=== PATIENT | female | born 1960 | race African-American/Black ===

== ENCOUNTER 2016-06-26 18:57 | Emergency (ER) | payer MEDICARE, MEDICAID ==
--- NOTE | 2016-06-26 19:49 | UC ---
Cardiac HPI - HPI Summary HPI Summary: The patient comes in today for: 1. Chest pain: Onset: 6 hours ago. Palliative/provocative: Nothing makes it better or worse. Walking does not affect it. Quality: Pressure. Region/radiation: Left chest with her left arm/fingers feels numb. Severity: 6/10 Time: Constant. Associated symptoms: Previous heart disease: She was "worked up a few years ago" and the stress test (exercise one and machine). It was OK. Fever: Shortness of breath. Palpitations. CAD risk factors: age: (+), HTN: (+), DM: (-), Previous heart disease: (-), Fm Hx: (+) (53 year old brother from [place]), smoking: (+), Cholesterol (doing well with Rx) * - History of Current Complaint Chief Complaint: UCChestPain Stated Complaint: CHEST PAIN Time Seen by Provider: 06/26/16 19:06 Hx Obtained From: Patient, Family/Junior Systems Administrator - Allergy/Home Medications Allergies/Adverse Reactions: Allergies Allergy/AdvReac Type Severity Reaction Status Date / Time Acetaminophen [From Tylenol] AdvReac Severe Tachycardia Verified 06/26/16 19:06 enviromental Allergy Eyes Uncoded 06/26/16 19:06 Itchy/Swollen/Red/Watery PMH/Surg Hx/FS Hx/Imm Hx Previously Healthy: No Endocrine History Of: Reports: Thyroid Disease, Hypothyroidism, Dyslipidemia Cardiovascular History Of: Reports: Hypertension Denies: Cardiac Disorders, Pacemaker/ICD, Myocardial Infarction, Congestive Heart Failure, Atrial Fibrillation, Deep Vein Thrombosis, Bleeding Disorders Respiratory History Of: Reports: Asthma Denies: COPD, Bronchitis, Pneumonia, Pulmonary Embolism GI/ History Of: Reports: Gastroesophageal Reflux Denies: Ulcer, Gastrointestinal Bleed, Gall Bladder Disease, Kidney Stones, Diverticulitis, Renal Disease, Urosepsis Neurological History Of: Denies: TIA, CVA, Dementia, Seizures, Migraine Psychological History Of: Reports: Depression Denies: Anxiety, Bipolar Disorder, Schizophrenia, Post Traumatic Stress Disorder Cancer History Of: Denies: Lung Cancer, Colorectal Cancer, Breast Cancer, Prostate Cancer, Cervical Cancer Other History Of: Negative For: HIV, Hepatitis B, Hepatitis C, Anticoagulant Therapy - Surgical History Surgical History: Yes Surgery Procedure, Year, and Place: 08/25 [facility] – [place]- D&C, 02/28 [facility] – [place]- hysterectomy. c- section - Family History Known Family History: Positive: Cardiac Disease, Hypertension, Diabetes - Social History Occupation: Employed Full-time Alcohol Use: Rare Substance Use Type: None Smoking Status (MU): Heavy Every Day Tobacco Smoker Type: Cigarettes Amount Used/How Often: 10 cig a day Length of Time of Smoking/Using Tobacco: 34 yrs Have You Smoked in the Last Year: Yes Household Exposure Type: Cigarettes - Immunization History Most Recent Influenza Vaccination: Never Most Recent Tetanus Shot: Within past 10 years Most Recent Pneumonia Vaccination: Never Review of Systems Constitutional: Negative Skin: Negative Eyes: Negative ENT: Negative Respiratory: Negative Cardiovascular: Chest Pain Gastrointestinal: Negative Genitourinary: Negative Motor: Negative All Other Systems Reviewed And Are Negative: Yes Physical Exam Triage Information Reviewed: Yes Appearance: No Pain Distress, Well-Nourished Vital Signs: Initial Vital Signs Temp 98.5 F 06/26/16 19:02 Pulse 68 06/26/16 19:02 Resp 16 06/26/16 19:02 BP 135/78 06/26/16 19:02 Pulse Ox 96 06/26/16 19:02 Eyes: Positive: Conjunctiva Clear. Negative: Discharge ENT: Positive: Hearing grossly normal. Negative: Pharyngeal erythema, Nasal congestion, Nasal drainage, TM bulging, TM dull, TM red, Tonsillar swelling, Tonsillar exudate Dental: Negative: Gross Decay/Caries @, Dental Fracture @ Neck: Positive: Supple, Nontender, No Lymphadenopathy. Negative: Nuchal Rigidity Respiratory: Positive: Chest non-tender, Lungs clear, No respiratory distress, No accessory muscle use. Negative: Crackles, Wheezing Cardiovascular: Positive: RRR, No Murmur Abdomen Description: Positive: Nontender, No Organomegaly, Soft. Negative: Distended, Guarding Musculoskeletal: Positive: Strength Intact, ROM Intact Neurological: Positive: Alert, Muscle Tone Normal Psychological: Positive: Age Appropriate Behavior, Consolable Skin: Negative: rashes, breakdown Diagnostics - Laboratory Diagnostic Studies Completed/Ordered: EKG: Rate: 65. Rhythm: Sinus. Ectopy: ( -). Acute changes: (-) - Clinical Impression Provider Diagnoses: Dr. Gottlieb - Physician Notifications Time Discussed With Above Provider: 20:03 Discharge - Discharge Plan Condition: Stable Disposition: [facility] Patient Education Materials: Chest Pain (ED) Additional Instructions: Please follow up with your primary care provider as soon as recommended by the hospital after you get out. Your family may follow you to the ER.
[2016-06-26] MEDS ORDERED: Aspirin Low Dose CHEW TAB* 81 MG PO ONE ×2 (20:03→20:04)
[2016-06-26 20:21] VITALS: BP 151/83
== END 2016-06-26 20:36 | disposition short-term general hospital (02) ==
LOC: UCEAST 18:57
DX: R07.9 Chest pain, unspecified (principal); E03.9 Hypothyroidism, unspecified; E78.5 Hyperlipidemia, unspecified; F17.210 Nicotine dependence, cigarettes, uncomplicated; J45.909 Unspecified asthma, uncomplicated
CPT/HCPCS: 93005; A9270-GY

== ENCOUNTER 2016-06-26 21:02 | Observation (INO) | payer MEDICARE, MEDICAID ==
[2016-06-26 21:45] LABS: Hematocrit 42 % (35-47); Mean Corpuscular HGB Conc 34 g/dl (31-36); Mean Corpuscular Hemoglobin 31 pg (27-31); Mean Corpuscular Volume 93 fL (80-97); Mean Platelet Volume 9 um3 (7.4-10.4); Red Blood Count 4.47 10^6/ul (4.0-5.4); Red Cell Distribution Width 14 % (10.5-15)
--- NOTE | 2016-06-26 21:55 | RAD ---
INDICATION: Chest pain COMPARISON: Most recent comparison chest x-ray July 16, 2014 TECHNIQUE: PA and lateral views of the chest were obtained. FINDINGS: The heart and mediastinum are normal in size and contour. The lungs are grossly clear. There is no evidence of large pleural effusion. Visualized bones are normal for the patient's age. There is no radiographic evidence of free air beneath the diaphragm IMPRESSION: No radiographic evidence of acute cardiopulmonary disease.
[2016-06-26 21:59] LABS: Albumin 4.2 g/dL (3.2-5.2); BUN/Creatinine Ratio 22.6 (8-20); Calcium 10.5 mg/dL (8.6-10.3); EGFR African American 127.6 (>60); EGFR Non-African American 99.2 (>60); Globulin 3.1 g/dL (2-4); Potassium 3.2 mmol/L (3.5-5.0); Total Bilirubin 0.3 mg/dL (0.2-1.0); Total Protein 7.3 g/dL (6.4-8.9)
[2016-06-26 22:02] LABS: Troponin I 0.06 ng/mL (<0.04)
--- NOTE | 2016-06-26 22:02 | ED ---
Jon Grossman Erika, scribed for Dennys Solano MD on 06/26/16 at 2122 . HPI Chest Pain - HPI Summary HPI Summary: Patient is a 56-year-old female sent by [facility] to the ED with a CC of constant chest pain starting at 13:00 today. Patient reports she was shopping when the pain began. Pain is not aggravated by breathing, and was constantly a 6 /10 until NTG treatment from EMS, which has reduced pain to a 4/10. Pt was also treated with 81 mg aspirin at [facility]. Patient also reports left arm numbness. She states she has had similar symptoms a few years ago. - History of Current Complaint Time Seen by Provider: 06/26/16 21:06 Hx Obtained From: Patient Onset/Duration: Started Hours Ago, Atraumatic, Still Present Timing: Constant Initial Severity: Moderate Current Severity: Moderate Pain Intensity: 4 - was 6/10 before EMS Tx Pain Scale Used: 0-10 Numeric Chest Pain Location: Left Anterior Chest Pain Radiates: Yes Chest Pain Radiates To:: Arm - left arm numbness Aggravating Factor(s): Nothing Alleviating Factor(s): NTG 123, EMS Tx - Allergy/Home Medications Allergies/Adverse Reactions: Allergies Allergy/AdvReac Type Severity Reaction Status Date / Time Acetaminophen [From Tylenol] AdvReac Severe Tachycardia Verified 06/26/16 19:06 enviromental Allergy Eyes Uncoded 06/26/16 19:06 Itchy/Swollen/Red/Watery PMH/Surg Hx/FS Hx/Imm Hx Endocrine/Hematology History: Reports: Hx Thyroid Disease Denies: Hx Anticoagulant Therapy, Hx Diabetes Cardiovascular History: Reports: Hx Angina, Hx Hypercholesterolemia, Hx Hypertension Denies: Hx Congestive Heart Failure, Hx Deep Vein Thrombosis, Hx Myocardial Infarction, Hx Pacemaker/ICD Respiratory History: Reports: Hx Asthma, Hx Sleep Apnea Denies: Hx Chronic Obstructive Pulmonary Disease (COPD), Hx Lung Cancer, Hx Pneumonia, Hx Pulmonary Embolism GI History: Reports: Hx Gastroesophageal Reflux Disease Denies: Hx Gall Bladder Disease, Hx Gastrointestinal Bleed, Hx Ulcer, Hx Urosepsis History: Denies: Hx Kidney Stones, Hx Renal Disease Musculoskeletal History: Reports: Hx Arthritis - knees Neurological History: Denies: Hx Dementia, Hx Migraine, Hx Seizures, Hx Transient Ischemic Attacks (TIA) Psychiatric History: Reports: Hx Depression Denies: Hx Anxiety, Hx Schizophrenia, Hx Bipolar Disorder - Cancer History Hx Chemotherapy: No Hx Radiation Therapy: No - Surgical History Surgery Procedure, Year, and Place: 08/25 [facility] [place], 02/28 [facility] [place]. c- section - Family History Known Family History: Positive: Cardiac Disease, Hypertension, Diabetes - Social History Occupation: Disabled Alcohol Use: Rare Hx Substance Use: No Substance Use Type: Reports: None Hx Tobacco Use: Yes Smoking Status (MU): Heavy Every Day Tobacco Smoker Type: Cigarettes Amount Used/How Often: 10 cig a day Length of Time of Smoking/Using Tobacco: 34 yrs Have You Smoked in the Last Year: Yes Review of Systems Positive: Chest Pain Positive: Numbness - left arm All Other Systems Reviewed And Are Negative: Yes Physical Exam Triage Information Reviewed: Yes Vital Signs On Initial Exam: Temp Pulse Resp BP Pulse Ox 98.5 F 70 20 137/84 96 06/26/16 21:08 06/26/16 21:08 06/26/16 21:08 06/26/16 21:08 06/26/16 21:08 Vital Signs Reviewed: Yes Appearance: Positive: Well-Appearing, No Pain Distress Skin: Positive: Warm Head/Face: Positive: Normal Head/Face Inspection Eyes: Positive: JOANN ENT: Positive: Hearing grossly normal Neck: Positive: Supple Respiratory/Lung Sounds: Positive: Clear to Auscultation, Breath Sounds Present Cardiovascular: Positive: Normal. Negative: Murmur Abdomen Description: Positive: Nontender, No Organomegaly, Soft Bowel Sounds: Positive: Present Musculoskeletal: Positive: Normal, Strength/ROM Intact Neurological: Positive: Sensory/Motor Intact, Normal Gait Psychiatric: Positive: Normal Diagnostics - Vital Signs Vital Signs Temp Pulse Resp BP Pulse Ox 06/26/16 21:08 98.5 F 70 20 137/84 96 - Laboratory Lab Results: Lab Results 06/26/16 06/26/16 06/26/16 Range/Units 20:10 21:20 21:20 WBC 8.0 (3.5-10.8) 10^3/ul RBC 4.47 (4.0-5.4) 10^6/ul Hgb 14.0 (12.0-16.0) g/dl Hct 42 (35-47) % MCV 93 (80-97) fL MCH 31 (27-31) pg MCHC 34 (31-36) g/dl RDW 14 (10.5-15) % Plt Count 182 (150-450) 10^3/ul MPV 9 (7.4-10.4) um3 Neut % (Auto) 50.6 (38-83) % Lymph % (Auto) 38.8 (25-47) % Bertie % (Auto) 7.9 (1-9) % Eos % (Auto) 2.2 (0-6) % Baso % (Auto) 0.5 (0-2) % Absolute Neuts (auto) 4.1 (1.5-7.7) 10^3/ul Absolute Lymphs (auto) 3.1 (1.0-4.8) 10^3/ul Absolute Monos (auto) 0.6 (0-0.8) 10^3/ul Absolute Eos (auto) 0.2 (0-0.6) 10^3/ul Absolute Basos (auto) 0 (0-0.2) 10^3/ul Absolute Nucleated RBC 0 10^3/ul Nucleated RBC % 0 Sodium 139 (133-145) mmol/L Potassium 3.2 L (3.5-5.0) mmol/L Chloride 110 (101-111) mmol/L Carbon Dioxide 27 (22-32) mmol/L Anion Gap 2 (2-11) mmol/L BUN 14 (6-24) mg/dL Creatinine 0.62 (0.51-0.95) mg/dL Est GFR ( Amer) 127.6 (>60) Est GFR (Non-Af Amer) 99.2 (>60) BUN/Creatinine Ratio 22.6 H (8-20) Glucose 109 H (70-100) mg/dL Lactic Acid 1.0 (0.5-2.0) mmol/L Calcium 10.5 H (8.6-10.3) mg/dL Total Bilirubin 0.30 (0.2-1.0) mg/dL AST 15 (13-39) U/L ALT 15 (7-52) U/L Alkaline Phosphatase 129 H (34-104) U/L Troponin I Pending Total Protein 7.3 (6.4-8.9) g/dL Albumin 4.2 (3.2-5.2) g/dL Globulin 3.1 (2-4) g/dL Albumin/Globulin Ratio 1.4 (1-3) Result Diagrams: 06/26/16 20:10 06/26/16 21:20 Lab Statement: Any lab studies that have been ordered have been reviewed, and results considered in the medical decision making process. - Radiology CXR Radiology Interpretation Completed By: Radiologist - IMPRESSION: No radiographic evidence of acute cardiopulmonary disease. - EKG 21:34 Cardiac Rate: Bradycardia - 54 bpm EKG Rhythm: Sinus Bradycardia Re-Evaluation - Re-Evaluation First Eval Re-Evaluation Time: 00:00 - pain free, results d/w pt. d/w hospitalist Change: Improved Chest Pain Course/Dx - Course Assessment/Plan: A 56 y/o F presents to the ED with a CC of chest pain with left arm numbness. Pt was treated with aspirin at [facility], and NTG by EMS, which decreased the severity of the pain. Blood work reveals an initial troponin of 0.06. Will discuss patient care with Dr. Madison for admission. - Diagnoses Provider Diagnoses: NSTEMI (non-ST elevated myocardial infarction) - Provider Notifications Discussed Care Of Patient With: Dr. Madison (hospitalist) at 20:07 - agrees to admit Instructed by Provider To: Admit As Inpatient - Critical Care Time Critical Care Time: 30-74 min Discharge - Discharge Plan Condition: Stable Disposition: ADMITTED TO [facility] documentation as recorded by the Jon escobar Erika accurately reflects the service I personally performed and the decisions made by me, Dennys Solano MD.
[2016-06-26] MEDS ORDERED: Nitroglycerin 2% OINT* 1 GM PAK TOPICAL ONE (22:08)
[2016-06-26] MEDS ORDERED: Potassium Chlor TAB* 20 MEQ TAB.ER PO ONE (22:47)
[2016-06-26] MEDS ORDERED: Ondansetron INJ* 2 MG/ML VIAL IV PRN (23:17)
[2016-06-26] MEDS ORDERED: Al Hydrox/Mg Hydrox/Simet LIQ* 30 ML UDC PO PRN (23:17)
--- NOTE | 2016-06-27 01:47 | HP ---
HISTORY AND PHYSICAL: DATE OF ADMISSION: 06/26/16 TIME OF EVALUATION: 2300 hours. PRIMARY CARE PHYSICIAN: Jose Camacho MD CHIEF COMPLAINT: Chest pain and left arm numbness. HISTORY OF PRESENT ILLNESS: This is a 56-year-old female with past medical history of hypertension and obstructive sleep apnea who presents to the emergency room from [facility] after having left-sided chest pain with left arm numbness around 1 o'clock while she was shopping. She denied any associated shortness of breath and diaphoresis. No nausea. She went to [facility] who sent her to the emergency room via ambulance for further evaluation. She was given nitro and aspirin. Her chest pain resolved, but her arm numbness has persisted. She states she has had similar symptoms like this in the past, but has felt this has been stress related. She denies any increase in stress recently. She states she had a stress test a few years ago that was unremarkable. Of note in the system, her last stress test was in June 2014 that was negative. Otherwise, remaining review of systems is negative. The patient was seen in the emergency room, had labs and imaging and was referred to the Hospitalist Service to rule out acute coronary syndrome. PAST MEDICAL HISTORY: Hypertension; obstructive sleep apnea, on CPAP; hypothyroidism; asthma; GERD; and depression. MEDICATIONS: The patient did not bring her medication list with her. ALLERGIES: TYLENOL. FAMILY HISTORY: Her brother from an [place] at age 53. 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 She lives with her son Dequan, who is her health care proxy. She admits to smoking about 10 cigarettes per day for 35 years. Rare alcohol use. No illicit drug use. CODE STATUS: Full code. REVIEW OF SYSTEMS: As mentioned in the HPI. PHYSICAL EXAMINATION GENERAL: In no acute distress, resting comfortably with her family at the bedside. VITAL SIGNS: Temperature 98.5, pulse rate is 50, respiratory rate is 14, oxygen saturation 97% on room air, and blood pressure 145/73. HEENT: Oropharynx, mucous membranes are moist. No erythema or exudate. Pupils are equal, round, and reactive to light and anicteric. Head normocephalic. NECK: Supple. No lymphadenopathy. RESPIRATORY: Diminished breath. No wheezing, rhonchi, or rales. CARDIAC: Regular rate and rhythm. She does have a blowing systolic murmur and most prominent at the right sternal base. ABDOMEN: Soft, nontender, and nondistended. EXTREMITIES: No clubbing, cyanosis, or edema; +2 DP. NEUROLOGIC: Alert and oriented x3. No focal neurologic deficits. DIAGNOSTIC STUDIES/LAB DATA: White count 8, hemoglobin 14, hematocrit 42, and platelets 182. Sodium 139, potassium 3.2, chloride 110, bicarb 27, BUN 14, creatinine 0.62, glucose 109, and calcium 10.5. Troponin 0.06. Lactic acid is 1. RADIOGRAPHIC DATA: Chest x-ray shows no radiographic evidence of acute cardiopulmonary disease. EKG shows normal sinus rhythm with atypical ST flattening. ASSESSMENT AND PLAN: This is a 56-year-old female with a past medical history of hypertension, obstructive sleep apnea, and family history of cardiac disease who presents to the emergency room with chest pain and left arm numbness. 1. Chest pain and left arm numbness: Assessment: The patient with atypical chest pain. Her chest pain has now resolved after nitro. Her numbness still persists, which could also be concerning for a neurologic event including transient ischemic attack or cerebrovascular accident. It has been a year since her last stress as well. She has significant family history. Plan: We will admit her to telemetry. Her troponin is noted as indeterminate depending on what the repeat shows. We will determine if this is ruling in for an NSTEMI versus chest pain rule out. We will get a head CT as well. If her numbness persists, may work it up further for concern for a cerebrovascular accident. Continue her on a baby aspirin 81 mg and we will need her med record in the morning as well. We will check a lipid panel as well and put in for a stress test. 2. Chronic medical problems: I am not aware of what medication she takes. She does not have her list with her. I recommend contacting pharmacy in the morning and starting them accordingly. 3. FEN: We will place her n.p.o. after midnight. 4. DVT prophylaxis: The patient scores high risk. Place her on heparin subcu t.i.d. 5. Code status: Full code. PATIENT TIME: Greater than 45 minutes was spent doing history and physical, greater than half time was spent in direct patient contact. CC: Jose Camacho MD* [id number]/[facility] #: [id number] JERICHO
--- NOTE | 2016-06-27 07:19 | RAD ---
INDICATION: Left arm numbness COMPARISON: None. TECHNIQUE: Contiguous axial sections of the brain were obtained from the skull base to the vertex without contrast. FINDINGS: The ventricles, cisterns and sulci are within normal limits. The sanchez-white matter differentiation is adequately maintained and there is no sulcal effacement. No significant focal abnormality or mass effect is present. There is no evidence for intracranial hemorrhage. No significant focal osseous abnormality is present. The visualized portion of the paranasal sinuses and mastoid air cells appear clear. IMPRESSION: Normal CT of the brain.
[2016-06-27] MEDS: Heparin VIAL(*) 5000 UNITS/ML VIAL (FIVE THOUSAND) SUBCUT SCH ×2 (07:46→14:24)
[2016-06-27 08:32] LABS: HDL Cholesterol 30.8 mg/dL
[2016-06-27 08:36] LABS: Troponin I 0.05 ng/mL (<0.04)
[2016-06-27] MEDS ORDERED: Aspirin EC Low Dose* 81 MG TAB.EC PO SCH (09:00)
--- NOTE | 2016-06-27 11:15 | PN ---
Subjective Date of Service: 06/27/16 Interval History: Patient seen and examined at bedside. Pt reports being chest pain free and the numbness and tingling to her arms has resolved. Denies fever, chills, shortness of breath, chest discomfort, N/V/D. Pt is complaining of a headache. Tele: Sinus rhythm, rate 60-70's. Family History: Unchanged from Admission Social History: Unchanged from Admission Past Medical History: Unchanged from Admission Objective Active Medications: Al Hydrox/Mg Hydrox/Simethicone (Maalox Plus*) 30 ml PO Q6H PRN Reason: INDIGESTION Aspirin (Aspirin Ec Low Dose*) 81 mg PO DAILY VIJI Heparin Sodium (Porcine) (Heparin Vial(*)) 5,000 units SUBCUT Q8HR VIJI Ondansetron HCl (Zofran Inj*) 4 mg IV Q4H PRN Reason: NAUSEA/VOMITING Vital Signs 06/26/16 06/27/16 06/27/16 23:24 00:42 00:45 Pulse Rate 54 51 Respiratory 16 16 Rate Blood Pressure 130/76 130/76 (mmHg) O2 Sat by Pulse 97 96 Oximetry 06/27/16 06/27/16 06/27/16 00:46 01:00 01:15 Pulse Rate 53 Respiratory 18 19 21 Rate Blood Pressure (mmHg) O2 Sat by Pulse 99 Oximetry 06/27/16 06/27/16 06/27/16 04:22 04:30 04:45 Pulse Rate 60 Respiratory 14 20 24 Rate Blood Pressure 133/72 (mmHg) O2 Sat by Pulse 98 Oximetry 06/27/16 06/27/16 06/27/16 06:24 07:19 07:20 Pulse Rate 59 Respiratory 20 14 Rate Blood Pressure 125/73 (mmHg) O2 Sat by Pulse 97 Oximetry 06/27/16 07:30 Pulse Rate 55 Respiratory 16 Rate Blood Pressure (mmHg) O2 Sat by Pulse 97 Oximetry Oxygen Devices in Use Now: None Appearance: NAD, laying in bed. Eyes: No Scleral Icterus, PERRLA Ears/Nose/Mouth/Throat: NL Teeth, Lips, Gums, Mucous Membranes Moist Neck: NL Appearance and Movements; NL JVP, Trachea Midline Respiratory: Symmetrical Chest Expansion and Respiratory Effort, Clear to Auscultation Cardiovascular: NL Sounds; No Murmurs; No JVD, RRR Abdominal: NL Sounds; No Tenderness; No Distention Extremities: No Edema Skin: No Rash or Ulcers Neurological: Alert and Oriented x 3, NL Muscle Strength and Tone Lines/Tubes/Other Access: Clean, Dry and Intact Peripheral IV - site benign. Nutrition: Taking PO's Result Diagrams: 06/26/16 20:10 06/27/16 07:40 Additional Lab and Data: Assess/Plan/Problems-Billing Assessment: Ms. Bedolla is a 56 yo female with PMH significant for HTN, BERNY, asthma, GERD who presented to the emergency room with chest pain and left arm numbness. She was admitted as an OBC to rule-out ACS. - Patient Problems (1) Chest pain Code(s): R07.9 - CHEST PAIN, UNSPECIFIED SNOMED Code(s): 26487814 Comment: Chest pain free at this time. Troponins 0.06, 0.05, and 0.05. Pending stress test. (2) Hypokalemia Code(s): E87.6 - HYPOKALEMIA SNOMED Code(s): 73602726 Comment: Improvement after replacement last evening, will give more KCL today. (3) BERNY (obstructive sleep apnea) Code(s): G47.33 - OBSTRUCTIVE SLEEP APNEA (ADULT) (PEDIATRIC) SNOMED Code(s): 09158148 Comment: Continue CPAP. (4) DVT prophylaxis Code(s): SZQ8886 - SNOMED Code(s): 207555068 Comment: Continue SQ heparin (5) Full code status Code(s): Z78.9 - OTHER SPECIFIED HEALTH STATUS SNOMED Code(s): 413304907 Status and Disposition: OBV. Discharge to home when medically stable.
[2016-06-27] MEDS ORDERED: Regadenoson* 0.4 MG/5 ML SYRINGE ONE (13:08)
[2016-06-27] MEDS ORDERED: Aminophylline IV* 25 MG/ML 10 ML VIAL ONE (13:08)
[2016-06-27] MEDS ORDERED: Ondansetron INJ* 2 MG/ML VIAL ONE (13:30)
--- NOTE | 2016-06-27 14:32 | RAD ---
Edited for charges. INDICATION: Chest pain. COMPARISON: Comparison is made with a prior myocardial perfusion stress study from July 17, 2014. Technique: A single day myocardial perfusion stress study was performed. Initially the resting study was performed. The patient was given an intravenous injection of 10.2 mCi of technetium 99m tetrofosmin and and the heart was imaged in multiple projections. The patient returned later in the day and under the direction of Dr. Lopez, the patient was given intervenous injection of Lexiscan. Subsequently the patient was given intravenous injection of 25.9 mCi of technetium 99m tetrofosmin and the heart was imaged in multiple projections. Images were reconstructed in the axial, sagittal and coronal planes and in a 3- D format. FINDINGS: There appears to be normal wall motion and myocardial thickening. The left ventricular ejection fraction was calculated to be 58%. Review of the images demonstrates mild decreased activity in the inferolateral wall on the post pharmacologic stress and resting images which resolves on the attenuation corrected images and therefore most consistent with attenuation artifact. There appears to be apical thinning. No other focal abnormalities are seen. IMPRESSION: NO EVIDENCE FOR INFARCT OR ISCHEMIA. ASSESSMENT: Low risk. Based on imaging criteria from ACC/AHA 2002 Guideline Update for the Management of Patients With Chronic Stable Angina Table 23. Noninvasive Risk Stratification. MTDD
[2016-06-27 14:46] LABS: BUN/Creatinine Ratio 22.4 (8-20); Calcium 9.8 mg/dL (8.6-10.3); EGFR African American 137.8 (>60); EGFR Non-African American 107.2 (>60); Potassium 3.4 mmol/L (3.5-5.0)
[2016-06-27 17:09] VITALS: BP 138/73
[2016-06-27] MEDS ORDERED: Potassium Chlor TAB* 20 MEQ TAB.ER PO ONE (18:02)
--- NOTE | 2016-06-28 18:18 | DS ---
DISCHARGE SUMMARY: DATE OF ADMISSION: 06/26/16 DATE OF DISCHARGE: 06/27/16 ATTENDING PHYSICIAN: Dr. Camilo Aponte* (dictated by Flores Carson NP). PRIMARY CARE PROVIDER: Dr. Jose Camacho. PRIMARY DIAGNOSIS: Atypical chest pain. SECONDARY DIAGNOSES: 1. Hypertension. 2. Hypothyroidism. 3. Gastroesophageal reflux disease. 4. Depression. 5. Asthma. 6. Obstructive sleep apnea. STUDIES WHILE IN THE HOSPITAL: 1. Chest x-ray on 06/26/16. Radiologist's impression: No radiographic evidence for acute cardiopulmonary disease. 2. Brain CT on 06/26/16. Radiologist's impression: Normal CT of the brain. 3. Cardiac stress test on 06/27/16. Replenishment Specialist's conclusion: Resting EKG, sinus bradycardia, 53, nonspecific ST changes inferiorly, poor R-wave progression in V1 to V4 with administration of regadenoson. There were no definitive EKG changes of ischemia. No significant hemodynamic changes were noted. Replenishment Specialist's conclusion: No evidence for regadenoson-induced myocardial ischemia by EKG criteria. Radiologist's conclusion: Low-risk study. No evidence for infarct or ischemia. EKG from 06/26/16, normal sinus rhythm with atypical ST flattening. EKG from 06/27/16 shows a sinus rhythm with slight ST depression in leads V3. The patient has T-wave inversions in leads V1, V2, V3 and these are consistent with previous EKGs. DISCHARGE MEDICATIONS: Continue home medications: 1. Atenolol 50 mg oral daily. 2. Omeprazole 40 mg oral daily. 3. Nifedipine 60 mg oral daily. 4. Celexa 20 mg oral daily. 5. Potassium chloride 10 mEq oral daily. 6. Levothyroxine 50 mcg oral daily. 7. Indapamide 2.5 mg oral daily. 8. Pravastatin 20 mg oral daily at bedtime. HISTORY OF PRESENT ILLNESS/HOSPITAL COURSE: Ms. Bedolla is a 56-year-old female with past medical history significant for hypertension and obstructive sleep apnea, who presented to the emergency room from the [facility] after having left-sided chest discomfort and associated left arm numbness while she was shopping. The patient denied any associated shortness of breath or diaphoresis or nausea. She presented to [facility] for evaluation and she was sent to the emergency room for further evaluation. While in the emergency room, the patient was given nitroglycerin and aspirin. The patient's chest pain resolved but she continued to have persistent arm numbness. The patient had a brain CT showing normal CT of the brain. The patient reports having similar symptoms in the past and has felt that her chest discomfort has been stress related. The patient denied any increase in stress recently and states that she had a stress test a few years ago that was unremarkable. The patient's last stress test was in June of 2014 and at that time was negative. The patient had labs significant for hypokalemia with a potassium of 3.2. The patient's initial troponin was 0.06. The hospitalists were asked to evaluate the patient for admission. While in the hospital, the patient had her troponins trended and repeat at 0.06. The patient underwent nuclear stress test that was read as a low risk without evidence for infarct or ischemia. The patient had a repeat EKG that was similar to the previous EKGs that she has had. The patient has been chest pain free. The patient's states that her numbness resolved in her arm. The patient had a lipid panel that was within normal limits. For the patient's other chronic medical problems, she was continued on her home medications. It was noted that the patient was found to have hypokalemia and received potassium replacement during her stay. Ms. Bedolla is stable for discharge to home today. Vital signs are as follows: Temperature 97.7, heart rate 54, respiratory rate 18, O2 sat 92% on room air, blood pressure 138/73. DISCHARGE PLAN: Ms. Bedolla will be discharged to home. Activity as tolerated. She has been on a heart healthy diet. She has been asked to follow up with her primary care doctor, Dr. Camacho, and she has been asked to call and make an appointment in the next week. As far as the patient's atypical chest pain, she ruled out for acute coronary syndrome. The patient reports this occurred while shopping and denies a correlation with stress as in previous episodes. The patient has been asked to have her basic metabolic panel checked prior to a followup appointment with Dr. Camacho to ensure that her hypokalemia has resolved. The patient has been asked to return to the emergency room for chest pain or shortness of breath. This is a summarized report of a complex medical history and hospital stay. For further details, please see the entire medical record. TIME SPENT: Time for this discharge was 50 minutes, 25 minutes was spent face- to- face with the patient discussing discharge plans and instructions. CONDITION ON DISCHARGE: Stable. Reviewed by SOUTH OVIEDO 07/06/16 1410 CC: Dr. Jose Camacho* [id number]/CPS #: [id number] MTDD
== END 2016-06-27 18:51 | disposition home or self-care (01) ==
LOC: ED 21:02 → EDHOLD 23:17 → MEDTELE 06-27 11:13
PROVIDERS: ADMIT Pediatrics; ATTEND Internal Medicine
DX: R07.9 Chest pain, unspecified (principal); R20.0 Anesthesia of skin; E87.6 Hypokalemia; R00.1 Bradycardia, unspecified; I10 Essential (primary) hypertension; E03.9 Hypothyroidism, unspecified; K21.9 Gastro-esophageal reflux disease without esophagitis; F32.9 Major depressive disorder, single episode, unspecified; J45.909 Unspecified asthma, uncomplicated; G47.33 Obstructive sleep apnea (adult) (pediatric); Z79.899 Other long term (current) drug therapy; Z88.6 Allergy status to analgesic agent; F17.210 Nicotine dependence, cigarettes, uncomplicated
CPT/HCPCS: 36415; 70450; 71020; 78452; 80048; 80053; 80061; 82553; 83605; 83735; 84484; 85025; 93005; 93017; 94660; 96372; 96374; 99285; 99406; A9270-GY; A9502; G0378; J0280; J1644; J2405; J2785

== ENCOUNTER 2017-03-23 20:48 | Emergency (ER) | payer MEDICARE, MEDICAID ==
[2017-03-23] MEDS ORDERED: Ipratropium 0.5MG/2.5ML NEB* 0.5 MG/2.5 ML NEB.SOLN INH ONE (20:57)
[2017-03-23] MEDS ORDERED: methylPREDNISolone 125 MG* 2 ML VIAL IM ONE (20:57)
[2017-03-23] MEDS ORDERED: Albuterol 2.5 MG/3 ML NEB.SOL* (0.083%) INH ONE (20:57)
[2017-03-23 23:07] VITALS: BP 119/70
--- NOTE | 2017-03-24 17:11 | UC ---
Manisha Grossman Rebecca, scribed for Melania Ramos DO on 03/23/17 at 2147 . Respiratory Complaint HPI - HPI Summary HPI Summary: Pt is a 57 y/o F who presents to [facility] c/o SOB and productive cough for the last 4 days, worsening 3 days ago and today. SOB is characterized as dyspnea at rest and the cough produces light yellow-green sputum with no blood. Pt was evaluated by an TELEHEALTH CASE MANAGER at her PCP's office 3 days ago where she was given a 3 day dose of Prednisone and Flovent which was completed yesterday, that did not improve sx. Sx aggravated and alleviated by nothing, unchanged by nebulizer treatments the last of which was tonight, about 3 hours [employer]. Additionally c/o GARCIA secondary to cough. Denies sore throat, ear pain, N/V, CP and abdominal pain. No changes in urinary habits. PMHx asthma. Has been using her albuterol inhaler at home, which has not been improving sx. SHx current smoker. - History of Current Complaint Chief Complaint: UCRespiratory Stated Complaint: TROUBLE BREATHING/URI Hx Obtained From: Patient Onset/Duration: Lasting Days - 4 days, Still Present, Worse Since - Today Severity Initially: Moderate Severity Currently: Severe Pain Intensity: 0 Pain Scale Used: 0-10 Numeric Character: Cough: Productive, Sputum Description: - YELLOW GREEN Aggravating Factors: Nothing Alleviating Factors: Nothing Associated Signs And Symptoms: Positive: Dyspnea, Wheezing, Nasal Congestion, Sinus Discomfort. Negative: Fever, Chills, Pleuritic Chest Pain, Hemoptysis, Dizziness, Edema Related History: Seasonal Allergies, Healthcare Acquired Pneumonia: Inpatient Status Within Last 30 Days - Allergies/Home Medications Allergies/Adverse Reactions: Allergies Allergy/AdvReac Type Severity Reaction Status Date / Time Acetaminophen [From Tylenol] AdvReac Severe Tachycardia Verified 03/23/17 21:11 enviromental Allergy Eyes Uncoded 03/23/17 21:11 Itchy/Swollen/Red/Watery Home Medications: Home Medications Albuterol HFA INHALER* [Ventolin HFA Inhaler*] 2 puff INH Q4H PRN 03/23/17 [ History Confirmed 03/23/17] Fluticasone HFA 110 mcg(NF) [Flovent HFA 110 mcg(NF)] 1 puff INH DAILY 03/23/17 [History Confirmed 03/23/17] guaiFENesin/CODIEN 100MG-10MG* [Robitussin AC 100Mg-10Mg*] 03/23/17 [History] PMH/Surg Hx/FS Hx/Imm Hx Endocrine History: Thyroid Disease Cardiovascular History: Hypertension Respiratory History: Asthma, Other Other Respiratory History: Seasonal allergies Psychological History: Depression Other History Of: Negative For: HIV, Hepatitis B, Hepatitis C, Anticoagulant Therapy - Surgical History Surgical History: Yes Surgery Procedure, Year, and Place: 08/25 [facility] [place]- D&C, 02/28 [facility] [place]- hysterectomy. c- section - Family History Known Family History: Positive: Cardiac Disease, Hypertension, Diabetes - Social History Occupation: Employed Full-time Alcohol Use: Occasionally Substance Use Type: None Smoking Status (MU): Light Every Day Tobacco Smoker Type: Cigarettes Amount Used/How Often: 10 cig a day Length of Time of Smoking/Using Tobacco: 34 yrs Have You Smoked in the Last Year: Yes Household Exposure Type: Cigarettes - Immunization History Most Recent Influenza Vaccination: Never Most Recent Tetanus Shot: Within past 10 years Most Recent Pneumonia Vaccination: Never Review of Systems Constitutional: Negative Skin: Negative Eyes: Negative ENT: Negative Respiratory: Shortness Of Breath, Cough Cardiovascular: Negative Gastrointestinal: Negative Genitourinary: Negative Motor: Negative Neurovascular: Negative Musculoskeletal: Negative Neurological: Headache - secondary to cough Psychological: Negative All Other Systems Reviewed And Are Negative: Yes - Comments Additional Review of Systems Comments: NEGATIVE: Sore throat, ear pain, N/V, CP and abdominal pain Physical Exam Triage Information Reviewed: Yes Appearance: No Pain Distress Vital Signs: Initial Vital Signs Temp 98.3 F 03/23/17 21:07 Pulse 78 03/23/17 21:07 Resp 18 03/23/17 21:07 BP 141/74 03/23/17 21:07 Pulse Ox 100 03/23/17 21:07 Vital Signs Reviewed: Yes - Additional Comments Appearance: Well-Appearing, No Pain Distress, Well-Nourished Eyes: Conjunctiva clear, no discharge ENT: Hearing grossly normal, no muffled/hoarse voice.positive nasal drainage/ congestion, Neck: Normal, Supple Respiratory/Lung Sounds: Diffuse wheezing in all caicedo, mild to moderate respiratory distress, use of accessory muscles to breathe Cardiovascular: RRR, No murmur Musculoskeletal: Normal Neurological: Alert, muscle tone normal Psychiatric: Normal, age appropriate behavior Skin: Normal, Warm, Dry, Normal color Diagnostic Evaluation - Laboratory O2 Sat by Pulse Oximetry: 100 Re-Evaluation - Re-Evaluation First Eval Re-Evaluation Time: 21:40 Change: Improved Comment: Still doing nebulizer treatment. Second Eval Re-Evaluation Time: 22:22 Change: Improved Comment: Nebulizer treatment is completed. Pt reports significant subjective improvement in the ease of breathing. Only scattered wheezing remains. TMs normal, negative tonsillar swelling, negative tonsillar exudate, negative trismus, pale boggy nasal mucosa, suborbital congestion noted. Respiratory Course/Dx - Course Course Of Treatment: Pt is a 57 y/o F who presents to [facility] c/o SOB and productive cough for the last 4 days, worsening 3 days ago and today. SOB is characterized as dyspnea at rest and the cough produces light yellow-green sputum with no blood. Pt was evaluated by an TELEHEALTH CASE MANAGER at her PCP's office 3 days ago where she was given a 3 day dose of Prednisone and Flovent which was completed yesterday, that did not improve sx. Sx unchanged by nebulizer treatments the last of which was tonight, about 3 hours [employer]. Additionally c/o GARCIA secondary to cough. Denies sore throat, ear pain, N/V, CP and abdominal pain. No changes in urinary habits. PMHx asthma. Has been using her albuterol inhaler at home, which has not been improving sx. SHx current smoker. In the [facility] course, pt received a Ventolin and Atrovent treatment and Solu-Medrol which improved sx significantly. Pt will be D/C to home with Dx of asthma and bronchitis with Rx for Cefdinir, Prednisone and Mucinex with a follow up with her PCP. She understands and agrees. The patient has been encouraged to quit smoking. High blood pressure noted. - Differential Dx/Diagnosis Differential Diagnosis/HQI/PQRI: Asthma, Bronchitis, Lower Resp Infection, Sinusitis Provider Diagnoses: Asthma. Bronchitis. Elevated blood pressure without diagnosis of hypertension. Discharge - Discharge Plan Condition: Stable Disposition: HOME Prescriptions: Cefdinir [Cefdinir 300 MG CAP] 300 mg PO BID #14 cap guaiFENesin ER TAB [Mucinex*] 600 mg PO BID PRN #1 box PRN Reason: Cough predniSONE TAB* [Deltasone TAB*] 10 mg PO DAILY #29 tab Patient Education Materials: Asthma (ED), Bronchospasm (ED) Forms: *Work Release Referrals: Jose Camacho MD [Primary Care Provider] - 2 Days Additional Instructions: INHALED BRONCHODILATORS:CONTINUE You have received a prescription for an inhaled bronchodilator -- a medication which stimulates the airways in the lung to dilate. This improves the flow of air in asthma, bronchitis, and emphysema. These medicines have some similarity to adrenaline, and can cause similar side effects: shakiness, racing heart, and a sense of nervousness. These side effects decrease with time. Contact your doctor if these side effects are severe. Do not over-use the medicine. Too-frequent use of the inhaler may make it ineffective. Call your doctor if the inhaler is not controlling your symptoms at the prescribed doses. COUGH-SUPPRESSANT & EXPECTORANT MEDICATION:CONTINUE You are to use a cough medication as needed for relief of symptoms. This medicine is a combination of an expectorant (to make the mucous thinner and more easily "coughed up") and a cough suppressant (to reduce the frequency of coughing). The cough-suppressant medicine is related to narcotics. You may experience mild nausea and sleepiness. Some patients who are very sensitive to narcotics may have stomach pain from this medicine. Taking the medicine with food reduces these side effects. Do not drive or work with machinery until you know how this medicine affects you. The expectorant should have no side effects. Iodine-containing expectorants (such as organidin) should not be taken by persons with active thyroid disease unless approved by your doctor. Call the doctor if you develop shortness of breath, hives, rash, itching, lightheadedness, or severe nausea and vomiting. EXPECTORANT MEDICATION: WE SENT IN A SCRIPT FOR MUCINEX SO THAT IT IS EASIER FOR YOU TO PICK THE RIGHT MED AT THE PHARMACY. HOWEVER, YOU CAN ALSO GO TO THE [employer] [facility] AND BUY PLAIN GUAIFENESIN WITHOU BINDERS OR FILLERS. An expectorant medicine has been prescribed. This type of drug makes mucous thinner, helping the sinuses, nose, and bronchial tubes to remain free of pus and mucous. Expectorants make a cough less severe and more comfortable, and help infected sinuses drain. In general, antihistamines defeat the purpose of the expectorant by making mucous thicker. They should be avoided unless specifically recommended by your physician. CORTICOSTEROID MEDICATION: You have been given a medicine of the cortisone class. This medication is used to control inflammation or allergy. It is usually only given for a short period of time, until the acute process subsides. There are usually no side effects from short-term use of cortisone-like medications. Some persons feel an increased sense of well-being and are not sleepy at bedtime. Long-term use of cortisone medications is best avoided, unless required for a severe condition. If your condition does not remit, or relapses after the course of corticosteroid medication, you should consult your physician. Contact the physician if you develop lightheadedness, black or tarry stools , swelling of the legs, or significant rapid change in weight. AZITHROMYCIN: Azithromycin (Zithromax) is a broad spectrum antibiotic in the same class as erythromycin. It can treat a variety of bacterial infections, but is most frequently used for respiratory infections. Azithromycin is extremely long-lasting. It accumulates in body tissues and continues to kill bacteria for many days. In order to improve absorption, Azithromycin should be taken at least one hour before or two hours after a meal. It does not have the same strong tendency to upset the stomach as erythromycin and is usually very well tolerated. Patients who have had a rash or other true allergic reactions to erythromycin should not take this medication. Call if you develop gastrointestinal distress, severe diarrhea, rash, hives, itching, or shortness of breath. ANYTIME YOU TAKE AN ANTIBIOTIC, IT IS IMPORTANT TO REPLENISH THE BODY'S SUPPLY OF "GOOD BACTERIA." YOU CAN GET GOOD BACTERIA FROM HIGH QUALITY CULTURED FOODS SUCH LOCAL YOGURT, SOUR KRAUT, DELIA TODD, NATURALLY FERMENTED PICKLES AND PROBIOTIC DRINKS. YOU CAN ALSO GET GOOD BACTERIA FROM A PROBIOTIC SUPPLEMENT. Your blood pressure was elevated at this visit. That does not mean you have hypertension, it is probably due to your current condition. Please follow up with your primary care provider. The documentation as recorded by the Manisha escobar Rebecca accurately reflects the service I personally performed and the decisions made by me, Melania Ramos DO.
== END 2017-03-23 22:58 | disposition home or self-care (01) ==
LOC: UCEAST 20:48
DX: J40 Bronchitis, not specified as acute or chronic (principal); Z88.6 Allergy status to analgesic agent; R03.0 Elevated blood-pressure reading, without diagnosis of hypertension
CPT/HCPCS: 96372; 99212; G0463; J2930; J7644

== ENCOUNTER 2017-08-10 10:11 | Emergency (ER) | payer MEDICARE, MEDICAID ==
[2017-08-10 11:54] LABS: Urine Appearance Clear; Urine Blood Negative (Negative); Urine Color Yellow; Urine Ketones Negative (Negative); Urine Protein 1+(30 mg/dL) (Negative); Urine Specific Gravity 1.012 (1.010-1.030); Urine Urobilinogen Negative (Negative)
[2017-08-10 12:02] LABS: EGFR Non-African American 83.2 (>60)
--- NOTE | 2017-08-10 12:07 | RAD ---
HISTORY: Left-sided abdominal pain, constipation COMPARISONS: None relevant VIEWS: Frontal supine and upright views of the abdomen. FINDINGS: BOWEL: There is a nonobstructive bowel gas pattern. There is a large amount of stool within the colon. CALCULI: There are no abnormal calculi. BONES AND SOFT TISSUES: Degenerative changes are noted of the lower lumbar spine. OTHER FINDINGS: The lung bases are clear. There is no subphrenic gas. IMPRESSION: NONOBSTRUCTIVE BOWEL GAS PATTERN. LARGE AMOUNT OF STOOL THROUGHOUT THE COLON.
[2017-08-10 12:33] LABS: ABS Basophils 0.1 10^3/ul (0-0.2); ABS Eosinophils 0.1 10^3/ul (0-0.6); ABS Lymphocytes 2.4 10^3/ul (1.0-4.8); ABS Monocytes 0.6 10^3/ul (0-0.8); ABS Neutrophils 4.5 10^3/ul (1.5-7.7); ABS Nucleated RBC 0 10^3/ul; Eosinophil % 1.2 % (0-6); Hematocrit 47 % (35-47); Hemoglobin 16.1 g/dl (12.0-16.0); Lymphocyte % 31.2 % (25-47); Mean Corpuscular HGB Conc 34 g/dl (31-36); Mean Corpuscular Hemoglobin 32 pg (27-31); Mean Corpuscular Volume 93 fL (80-97); Mean Platelet Volume 9 um3 (7.4-10.4); Nucleated Red Blood Cells % 0.1; Platelet Count 206 10^3/ul (150-450); Red Blood Count 5.09 10^6/ul (4.0-5.4); Red Cell Distribution Width 14 % (10.5-15); White Blood Count 7.6 10^3/ul (3.5-10.8)
--- NOTE | 2017-08-10 13:17 | RAD ---
HISTORY: Right upper quadrant tenderness to palpation COMPARISONS: None TECHNIQUE: Multiple transverse and longitudinal ultrasound images were obtained of the right upper quadrant of the abdomen using grayscale and color Doppler imaging. FINDINGS: LIVER: There are multiple low-attenuation hepatic parenchymal masses. These measure between 2 cm and 3.3 cm in maximum dimension. There is normal hepatopedal flow of the portal vein on Doppler imaging. BILIARY TREE: There is no intrahepatic or extrahepatic biliary dilatation. The common duct measures 0.5 cm. GALLBLADDER: The gallbladder is distended. Multiple shadowing echogenic foci consistent with gallstones are noted. There is no gallbladder wall thickening, pericholecystic fluid, or sonographic Engel sign. PANCREAS: The head of the pancreas is unremarkable. The tail of the pancreas is not well visualized secondary to overlying bowel gas. RIGHT KIDNEY: The right kidney is normal in shape, size, contour, and echogenicity. There is no hydronephrosis or nephrolithiasis. The right kidney measures 13.1 x 6.3 x 6.3 cm. AORTA AND IVC: The aorta and IVC are unremarkable. FLUID: There are no pleural effusions. There is no free fluid within the hepatorenal recess. OTHER FINDINGS: None. IMPRESSION: 1. MULTIPLE HEPATIC PARENCHYMAL MASSES CONCERNING FOR METASTATIC DISEASE TO THE LIVER. 2. CHOLELITHIASIS WITHOUT SONOGRAPHIC FEATURES OF ACUTE CHOLECYSTITIS.
--- NOTE | 2017-08-10 13:58 | ED ---
Abdominal Pain/Female - HPI Summary HPI Summary: Pt here w/ Rt sided pain x 2 days- intermittent. "Pressure". Pt denies N/V/D. Constipation started 1.5 weeks ago. HAs been taking miralax, stool softeners and metamucil but has not been drinking water (some days only a little, some days none at all - drinks coffee and soda). IBS -gets constipated from time to time. Last BM yesterday - small, had some relief but not much. 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 Pain Intensity: 3 Allergies/Adverse Reactions: Allergies Allergy/AdvReac Type Severity Reaction Status Date / Time acetaminophen Allergy Palpitation Verified 08/10/17 10:51 s enviromental Allergy Eyes Uncoded 04/21/17 14:25 Itchy/Swollen/Red/Watery PMH/Surg Hx/FS Hx/Imm Hx Previously Healthy: Yes Endocrine/Hematology History: Reports: Hx Thyroid Disease Denies: Hx Anticoagulant Therapy, Hx Diabetes Cardiovascular History: Reports: Hx Angina, Hx Hypercholesterolemia, Hx Hypertension Denies: Hx Congestive Heart Failure, Hx Deep Vein Thrombosis, Hx Myocardial Infarction, Hx Pacemaker/ICD Respiratory History: Reports: Hx Asthma, Hx Sleep Apnea Denies: Hx Chronic Obstructive Pulmonary Disease (COPD), Hx Lung Cancer, Hx Pneumonia, Hx Pulmonary Embolism GI History: Reports: Hx Gastroesophageal Reflux Disease Denies: Hx Gall Bladder Disease, Hx Gastrointestinal Bleed, Hx Ulcer, Hx Urosepsis History: Denies: Hx Kidney Stones, Hx Renal Disease Musculoskeletal History: Reports: Hx Arthritis - knees Neurological History: Denies: Hx Dementia, Hx Migraine, Hx Seizures, Hx Transient Ischemic Attacks (TIA) Psychiatric History: Reports: Hx Depression Denies: Hx Anxiety, Hx Schizophrenia, Hx Bipolar Disorder - Cancer History Hx Chemotherapy: No Hx Radiation Therapy: No - Surgical History Surgery Procedure, Year, and [place]: [place] [facility] [place] [facility] [place] c[place] section Infectious Disease History: No Infectious Disease History: Denies: Hx Clostridium Difficile, Hx Hepatitis, Hx Human Immunodeficiency Virus (HIV), Hx of Known/Suspected MRSA, Hx Shingles, Hx Tuberculosis, Hx Known/ Suspected VRE, Hx Known/Suspected VRSA, History Other Infectious Disease, Traveled Outside the [place] in Last 30 Days - Family History Known Family History: Positive: Cardiac Disease, Hypertension, Diabetes - Social History Alcohol Use: Rare Hx Substance Use: No Substance Use Type: Reports: None Hx Tobacco Use: Yes Smoking Status (MU): Heavy Every Day Tobacco Smoker Type: Cigarettes Amount Used/How Often: 10 cig a day Length of Time of Smoking/Using Tobacco: 34 yrs Have You Smoked in the Last Year: Yes Physical Exam Vital Signs On Initial Exam: Initial Vitals Temp Pulse Resp BP Pulse Ox 98.9 F 60 18 146/87 97 08/10/17 10:14 08/10/17 10:14 08/10/17 10:14 08/10/17 10:14 08/10/17 10:14 Diagnostics - Vital Signs Vital Signs Temp Pulse Resp BP Pulse Ox 08/10/17 13:18 57 98 08/10/17 12:30 56 137/75 97 08/10/17 12:00 55 132/73 97 08/10/17 11:52 55 137/77 97 08/10/17 11:00 57 138/80 99 08/10/17 10:49 56 99 08/10/17 10:47 136/82 08/10/17 10:14 98.9 F 60 18 146/87 97 - Laboratory Lab Results: Lab Results 08/10/17 08/10/17 08/10/17 Range/Units 11:30 11:36 11:36 WBC 7.6 (3.5-10.8) 10^3/ul RBC 5.09 (4.0-5.4) 10^6/ul Hgb 16.1 H (12.0-16.0) g/dl Hct 47 (35-47) % MCV 93 (80-97) fL MCH 32 H (27-31) pg MCHC 34 (31-36) g/dl RDW 14 (10.5-15) % Plt Count 206 (150-450) 10^3/ul MPV 9 (7.4-10.4) um3 Neut % (Auto) 59.0 (38-83) % Lymph % (Auto) 31.2 (25-47) % Wilkin % (Auto) 7.4 (1-9) % Eos % (Auto) 1.2 (0-6) % Baso % (Auto) 1.2 (0-2) % Absolute Neuts (auto) 4.5 (1.5-7.7) 10^3/ul Absolute Lymphs (auto) 2.4 (1.0-4.8) 10^3/ul Absolute Monos (auto) 0.6 (0-0.8) 10^3/ul Absolute Eos (auto) 0.1 (0-0.6) 10^3/ul Absolute Basos (auto) 0.1 (0-0.2) 10^3/ul Absolute Nucleated RBC 0 10^3/ul Nucleated RBC % 0.1 Sodium 137 (133-145) mmol/L Potassium 3.5 (3.5-5.0) mmol/L Chloride 103 (101-111) mmol/L Carbon Dioxide 29 (22-32) mmol/L Anion Gap 5 (2-11) mmol/L BUN 11 (6-24) mg/dL Creatinine 0.72 (0.51-0.95) mg/dL Est GFR ( Amer) 107.0 (>60) Est GFR (Non-Af Amer) 83.2 (>60) BUN/Creatinine Ratio 15.3 (8-20) Glucose 91 (70-100) mg/dL Lactic Acid (0.5-2.0) mmol/L Calcium 10.8 H (8.6-10.3) mg/dL Total Bilirubin 0.40 (0.2-1.0) mg/dL AST 21 (13-39) U/L ALT 25 (7-52) U/L Alkaline Phosphatase 168 H (34-104) U/L C-Reactive Protein 5.42 H (< 5.00) mg/L Total Protein 8.6 (6.4-8.9) g/dL Albumin 4.8 (3.2-5.2) g/dL Globulin 3.8 (2-4) g/dL Albumin/Globulin Ratio 1.3 (1-3) Lipase 22 (11.0-82.0) U/L Urine Color Yellow Urine Appearance Clear Urine pH 6.0 (5-9) Ur Specific Charlotte 1.012 (1.010-1.030) Urine Protein 1+(30 mg/dl) H (Negative) Urine Ketones Negative (Negative) Urine Blood Negative (Negative) Urine Nitrate Negative (Negative) Urine Bilirubin Negative (Negative) Urine Urobilinogen Negative (Negative) Ur Leukocyte Esterase Negative (Negative) Urine WBC (Auto) Trace(0-5/hpf) (Absent) Urine RBC (Auto) Absent (Absent) Ur Squamous Epith Cells Present H (Absent) Urine Bacteria Absent (Absent) Urine Glucose Negative (Negative) 08/10/17 Range/Units 11:36 WBC (3.5-10.8) 10^3/ul RBC (4.0-5.4) 10^6/ul Hgb (12.0-16.0) g/dl Hct (35-47) % MCV (80-97) fL MCH (27-31) pg MCHC (31-36) g/dl RDW (10.5-15) % Plt Count (150-450) 10^3/ul MPV (7.4-10.4) um3 Neut % (Auto) (38-83) % Lymph % (Auto) (25-47) % Wilkin % (Auto) (1-9) % Eos % (Auto) (0-6) % Baso % (Auto) (0-2) % Absolute Neuts (auto) (1.5-7.7) 10^3/ul Absolute Lymphs (auto) (1.0-4.8) 10^3/ul Absolute Monos (auto) (0-0.8) 10^3/ul Absolute Eos (auto) (0-0.6) 10^3/ul Absolute Basos (auto) (0-0.2) 10^3/ul Absolute Nucleated RBC 10^3/ul Nucleated RBC % Sodium (133-145) mmol/L Potassium (3.5-5.0) mmol/L Chloride (101-111) mmol/L Carbon Dioxide (22-32) mmol/L Anion Gap (2-11) mmol/L BUN (6-24) mg/dL Creatinine (0.51-0.95) mg/dL Est GFR ( Amer) (>60) Est GFR (Non-Af Amer) (>60) BUN/Creatinine Ratio (8-20) Glucose (70-100) mg/dL Lactic Acid 1.2 (0.5-2.0) mmol/L Calcium (8.6-10.3) mg/dL Total Bilirubin (0.2-1.0) mg/dL AST (13-39) U/L ALT (7-52) U/L Alkaline Phosphatase (34-104) U/L C-Reactive Protein (< 5.00) mg/L Total Protein (6.4-8.9) g/dL Albumin (3.2-5.2) g/dL Globulin (2-4) g/dL Albumin/Globulin Ratio (1-3) Lipase (11.0-82.0) U/L Urine Color Urine Appearance Urine pH (5-9) Ur Specific Charlotte (1.010-1.030) Urine Protein (Negative) Urine Ketones (Negative) Urine Blood (Negative) Urine Nitrate (Negative) Urine Bilirubin (Negative) Urine Urobilinogen (Negative) Ur Leukocyte Esterase (Negative) Urine WBC (Auto) (Absent) Urine RBC (Auto) (Absent) Ur Squamous Epith Cells (Absent) Urine Bacteria (Absent) Urine Glucose (Negative) Result Diagrams: 08/10/17 11:36 08/10/17 11:36 Diagnostic Studies Comment: AB XR: Report reviewed and general consensus is large amount of stool without obstruction pattern. Ultrasound report per radiologist: "1. Multiple hepatic parenchymal masses concerning for metastatic disease to the liver. 2. Cholelithiasis without sonographic features of acute cholecystitis." Lab Statement: Any lab studies that have been ordered have been reviewed, and results considered in the medical decision making process. Abdominal Pain Fem Course/Dx - Course Course Of Treatment: Discussed w/ pt. Educated about tx for constipation. Also reviewed U/S findings of possibe METS to liver - strongly encouraged f/u w/ PCP and printed in d/c. Pt has a PCP and agrees w/ plan. Reviewed danger s/sx of when to return to ED. Discussed w/ Dr. Caldwell. - Diagnoses Provider Diagnoses: Constipation, Liver masses Discharge - Discharge Plan Condition: Stable Disposition: HOME Patient Education Materials: Constipation (ED) Referrals: Jose Camacho MD [Primary Care Provider] - Additional Instructions: Continue miralax and metamucil with stool softener with LOTS OF WATER to aid in having a bowel movement. IF this does not help, you may try magensium citrate again with plenty of fluids to prevent dehydration if you start having bowel movements (drink water, gatorade, etc). If you are still unable to move your bowels, you may try a Fleet's enema. If after all of your efforts over the course of 3-5 days you are still unable to move your bowels, return to the ED. NOTE: ABNORMAL MASSES WERE IDENTIFIED IN YOUR LIVER ON YOUR ULTRASOUND TODAY. THESE COULD BE MALIGNANT. IT IS VERY IMPORTANT THAT YOU FOLLOW-UP WITH YOUR PCP SATURDAY FOR FURTHER OUTPATIENT TESTING. IF IN THE MEANTIME YOU DEVELOP FEVER, CHILLS, VOMITING, EXCESSIVE DIARRHEA, CHEST PAIN, SHORTNESS OF BREATH, RETURN TO THE ED
[2017-08-10 14:49] VITALS: BP 147/79
== END 2017-08-10 14:48 | disposition home or self-care (01) ==
LOC: ED 10:11
DX: K59.00 Constipation, unspecified (principal); R16.0 Hepatomegaly, not elsewhere classified; K80.20 Calculus of gallbladder without cholecystitis without obstruction; F17.210 Nicotine dependence, cigarettes, uncomplicated; Z88.6 Allergy status to analgesic agent
CPT/HCPCS: 36415; 74019; 76705; 80053; 81003; 81015; 83605; 83690; 85025; 86140; 99282

== ENCOUNTER 2018-01-20 14:18 | Emergency (ER) | payer MEDICARE, MEDICAID ==
[2018-01-20 14:44] VITALS: BP 146/82
--- NOTE | 2018-01-20 14:44 | UC ---
Upper Extremity HPI - History of Current Complaint Stated Complaint: ELBOW PAIN LEG INJURY Time Seen by Provider: 01/20/18 14:38 - Allergies/Home Medications Allergies/Adverse Reactions: Allergies Allergy/AdvReac Type Severity Reaction Status Date / Time acetaminophen Allergy Palpitation Verified 08/16/17 14:55 s enviromental Allergy Eyes Uncoded 08/16/17 14:55 Itchy/Swollen/Red/Watery PMH/Surg Hx/FS Hx/Imm Hx Other History Of: Negative For: HIV, Hepatitis B, Hepatitis C, Anticoagulant Therapy - Surgical History Surgical History: None Surgery Procedure, Year, and Place: 08/25 [facility] [place], 02/28 [facility] [place]. c- section. NERVE TRANSPLANT IN LEFT ARM. TENDON RELEASE LEFT WRIST - Family History Known Family History: Positive: Cardiac Disease, Hypertension, Diabetes - Social History Alcohol Use: Rare Substance Use Type: None Smoking Status (MU): Heavy Every Day Tobacco Smoker Type: Cigarettes Amount Used/How Often: 10 cig a day Length of Time of Smoking/Using Tobacco: 34 yrs Have You Smoked in the Last Year: Yes Household Exposure Type: Cigarettes - Immunization History Most Recent Influenza Vaccination: Never Most Recent Tetanus Shot: Within past 10 years Most Recent Pneumonia Vaccination: Never Discharge - Discharge Plan Referrals: Jose Camacho MD [Primary Care Provider] - Attestation Statement Scribe Attestation: This is shawn Peña documenting for attending Luciana Mcdowell MD. User Type: Provider with Scribe Provider Attestation: The documentation recorded by the scribe accurately reflects the service I personally performed and the decisions made by me.
--- NOTE | 2018-01-20 15:02 | UC ---
Minor Trauma HPI - History of Current Complaint Chief Complaint: UCUpperExtremity Stated Complaint: ELBOW PAIN LEG INJURY Time Seen by Provider: 01/20/18 14:38 Hx Obtained From: Patient Pain Intensity: 8 - Allergies/Home Medications Allergies/Adverse Reactions: Allergies Allergy/AdvReac Type Severity Reaction Status Date / Time acetaminophen Allergy Palpitation Verified 01/20/18 14:44 s enviromental Allergy Eyes Uncoded 01/20/18 14:44 Itchy/Swollen/Red/Watery Home Medications: Home Medications Ibuprofen TAB* [Motrin TAB* 800 MG] 800 mg PO Q6H PRN 01/20/18 [History Confirmed 01/20/18] NIFEdipine ER TAB* [Procardia Xl TAB*] 60 mg PO DAILY 01/20/18 [History Confirmed 01/20/18] Pravastatin (NF) [Pravachol (NF)] 20 mg PO 1700 01/20/18 [History Confirmed ] PMH/Surg Hx/FS Hx/Imm Hx Other History Of: Negative For: HIV, Hepatitis B, Hepatitis C, Anticoagulant Therapy - Surgical History Surgical History: None Surgery Procedure, Year, and Place: [place] [facility] [place], [place] [facility] [place]. c- section. NERVE TRANSPLANT IN LEFT ARM. TENDON RELEASE LEFT WRIST - Family History Known Family History: Positive: Cardiac Disease, Hypertension, Diabetes - Social History Alcohol Use: Rare Substance Use Type: None Smoking Status (MU): Heavy Every Day Tobacco Smoker Type: Cigarettes Amount Used/How Often: 10 cig a day Length of Time of Smoking/Using Tobacco: 34 yrs Have You Smoked in the Last Year: Yes Household Exposure Type: Cigarettes - Immunization History Most Recent Influenza Vaccination: Never Most Recent Tetanus Shot: Within past 10 years Most Recent Pneumonia Vaccination: Never Physical Exam Vital Signs: Initial Vital Signs Temp 98.7 F 01/20/18 14:39 Pulse 58 01/20/18 14:39 Resp 16 01/20/18 14:39 BP 146/82 01/20/18 14:39 Pulse Ox 94 01/20/18 14:39 Discharge - Discharge Plan Referrals: Jose Camacho MD [Primary Care Provider] - Attestation Statement Scribe Attestation: This is shawn Peña documenting for attending Luciana Mcdowell MD. User Type: Provider with Scribe Provider Attestation: The documentation recorded by the scribe accurately reflects the service I personally performed and the decisions made by me.
--- NOTE | 2018-01-20 15:35 | RAD ---
Indication: Left leg injury. 2 views of left lower leg demonstrates no fracture. No other bone or joint abnormality is identified. IMPRESSION: No fracture of the left lower leg is noted.
--- NOTE | 2018-01-20 15:52 | UC ---
Lower Extremity/Ankle HPI - HPI Summary HPI Summary: Here with 2 Chief complaints-1, Right elbow pain for a couple of months. no know injury. 2. slipped in the shower and hit left alaniz--has a hematoma on alaniz able to WB without difficulty - History of Current Complaint Chief Complaint: UCUpperExtremity Stated Complaint: ELBOW PAIN LEG INJURY Time Seen by Provider: 01/20/18 14:38 Hx Obtained From: Patient ?: No Onset/Duration: Sudden Onset - left lower leg, Gradual Onset - right elbow Pain Intensity: 8 Pain Scale Used: 0-10 Numeric Able to Bear Weight: Yes - Allergies/Home Medications Allergies/Adverse Reactions: Allergies Allergy/AdvReac Type Severity Reaction Status Date / Time acetaminophen Allergy Palpitation Verified 01/20/18 14:44 s enviromental Allergy Eyes Uncoded 01/20/18 14:44 Itchy/Swollen/Red/Watery Home Medications: Home Medications NIFEdipine ER TAB* [Procardia Xl TAB*] 60 mg PO DAILY 01/20/18 [History Confirmed 01/20/18] Pravastatin (NF) [Pravachol (NF)] 20 mg PO 1700 01/20/18 [History Confirmed ] PMH/Surg Hx/FS Hx/Imm Hx Previously Healthy: No Endocrine History: Hypothyroidism, Dyslipidemia Cardiovascular History: Hypertension Respiratory History: Asthma GI/ History: Gastroesophageal Reflux Other History Of: Negative For: HIV, Hepatitis B, Hepatitis C, Anticoagulant Therapy - Surgical History Surgical History: None Surgery Procedure, Year, and Place: 08/25 [facility] [place], 02/28 [facility] [place]. c- section. NERVE TRANSPLANT IN LEFT ARM. TENDON RELEASE LEFT WRIST - Family History Known Family History: Positive: Cardiac Disease, Hypertension, Diabetes - Social History Occupation: Employed Full-time Lives: With Family Alcohol Use: Rare Substance Use Type: None Smoking Status (MU): Heavy Every Day Tobacco Smoker Type: Cigarettes Amount Used/How Often: 10 cig a day Length of Time of Smoking/Using Tobacco: 34 yrs Have You Smoked in the Last Year: Yes Household Exposure Type: Cigarettes Cessation Counseling: Patient Advised to Stop - Immunization History Most Recent Influenza Vaccination: Never Most Recent Tetanus Shot: Within past 10 years Most Recent Pneumonia Vaccination: Never Review of Systems Constitutional: Negative Skin: Negative Eyes: Negative ENT: Negative Respiratory: Negative Cardiovascular: Negative Gastrointestinal: Negative Genitourinary: Negative Motor: Negative Neurovascular: Negative Musculoskeletal: Arthralgia - lateral and medial epicondylr, Other: - hematoma and pain left mid lower leg Neurological: Negative Psychological: Negative Is Patient Immunocompromised?: No All Other Systems Reviewed And Are Negative: Yes Physical Exam Triage Information Reviewed: Yes Appearance: Well-Appearing, No Pain Distress, Well-Nourished Vital Signs: Initial Vital Signs Temp 98.7 F 01/20/18 14:39 Pulse 58 01/20/18 14:39 Resp 16 01/20/18 14:39 BP 146/82 01/20/18 14:39 Pulse Ox 94 01/20/18 14:39 Vital Signs Reviewed: Yes Eye Exam: Normal Eyes: Positive: Conjunctiva Clear ENT Exam: Normal ENT: Positive: Normal ENT inspection, Hearing grossly normal, Pharynx normal. Negative: Nasal congestion, Nasal drainage, Trismus, Muffled voice, Hoarse voice Dental Exam: Normal Neck exam: Normal Neck: Positive: Supple, Nontender Respiratory Exam: Normal Respiratory: Positive: Chest non-tender, No respiratory distress, No accessory muscle use Cardiovascular Exam: Normal Cardiovascular: Positive: RRR, Pulses Normal, Brisk Capillary Refill Musculoskeletal Exam: Other Musculoskeletal: Positive: Edema @ - mid left lower leg Neurological Exam: Normal Neurological: Positive: Alert, Muscle Tone Normal Psychological Exam: Normal Skin Exam: Normal Diagnostics - Radiology No standard instances Xray Interpretation: No Acute Changes Radiology Interpretation Completed By: ED Physician, Radiologist - Patient Name : BROOKLYN BENTLEY Medical Record# : [id number] Ordering Physician: Vidya Zhang HEALTHCARE APPLICATIONS ANALYST Acct.#: [id number] : 1960 Age: 57 Sex: F Location: [facility] Exam Date: 01/20 1512 ADM Status: REG ER Order Information: LOWER LEG LEFT Accession Number: [id number] CPT : 07272 Indication: Left leg injury. 2 views of left lower leg demonstrates no fracture. No other bone or joint abnormality is identified. IMPRESSION: No fracture of the left lower leg is noted. _ <Electronically signed by Sheree Jacques MD in OV> 01/20/18 1532 Dictated By: Sheree Jacques MD Dictated Date/Time: 01/20/18 1532 Transcribed Date/Time: 1529 Copy to: CC:Jose Camacho MD; Vidya Zhang HEALTHCARE APPLICATIONS ANALYST; Luciana Mcdowell MD Imaging - [facility] Imaging - [facility] Imaging - [facility] [address] [place] [id number] [id number] [place] [id number] ph [phone] ph ([phone] ph ) This report is only to be considered final once signed by the Provider(s) as displayed in the "<Electronically Signed by >" field (s). Absence of a signature indicates the report is in a draft status and still needs to be finalized. In the event this document was created by someone other than the signing Provider, the individual initiating the document will be listed in the "Entered by:" or "Dictated by:" caicedo. 1 of 1 Lower Extremity Course/Dx - Course Course Of Treatment: suggested patient get a compression band for tennis elbow patt wrap left lower leg use ICE NSAID, follow orthopedic c/o with [facility] Orthopedics and BP with PCP Doctor Camacho - Differential Dx/Diagnosis Provider Diagnoses: right tennsi elbow, left lower leg hematom, elevated blood pressure in poor control, nicotine dependent Discharge - Sign-Out/Discharge Documenting (check all that apply): Patient Departure - Discharge Plan Condition: Stable Disposition: HOME Prescriptions: Naproxen [Naprosyn 500 mg tab] 500 mg PO BID #20 tablet Patient Education Materials: Tennis Elbow (ED), Hypertension (ED), R.I.C.E. Treatment (ED), Hematoma (ED) Forms: *Work Release Referrals: Jose Camacho MD [Primary Care Provider] - 1 Week Joey Aguilar MD [Medical Doctor] - 3 Days - Billing Disposition and Condition Condition: STABLE Disposition: Home Attestation Statement User Type: Provider - I was available for consult. This patient was seen by the [facility]. The patient was not presented to, seen by, or examined by me. -Sheree
== END 2018-01-20 15:58 | disposition home or self-care (01) ==
LOC: UCEAST 14:18
DX: M77.11 Lateral epicondylitis, right elbow (principal); S80.12XA Contusion of left lower leg, initial encounter; F17.210 Nicotine dependence, cigarettes, uncomplicated; E78.5 Hyperlipidemia, unspecified; I10 Essential (primary) hypertension; J45.909 Unspecified asthma, uncomplicated; Z91.09 Other allergy status, other than to drugs and biological substances; Z88.6 Allergy status to analgesic agent; Z79.899 Other long term (current) drug therapy; W01.10XA Fall on same level from slipping, tripping and stumbling with subsequent striking against unspecified object, initial encounter; Y92.9 Unspecified place or not applicable
CPT/HCPCS: 99212; G0463

== ENCOUNTER 2018-04-23 14:45 | Emergency (ER) | payer MEDICARE, MEDICAID ==
--- NOTE | 2018-04-23 16:40 | UC ---
Cardiac HPI - HPI Summary HPI Summary: 58 year old woman here with a chief complaint of chest pressure and bilateral ear pressure. The chest pressure is a 3 out of 10 minutes in the upper sternal region. She feels that pressure radiates to the left ear. She's not nauseous or sweaty or short of breath. Chest pressure does get worse with activity. Patient has hypertension. She has a brother who had a heart attack. There is a family history of diabetes. - History of Current Complaint Chief Complaint: UCChestPain Stated Complaint: CHEST PRESSURE,EARS CLOGGED Time Seen by Provider: 04/23/18 16:17 Hx Last Menstrual Period: post Pain Intensity: 6 - Allergy/Home Medications Allergies/Adverse Reactions: Allergies Allergy/AdvReac Type Severity Reaction Status Date / Time acetaminophen Allergy Palpitation Verified 04/23/18 15:03 s enviromental Allergy Eyes Uncoded 04/23/18 15:03 Itchy/Swollen/Red/Watery PMH/Surg Hx/FS Hx/Imm Hx Cardiovascular History: Hypertension Other History Of: Negative For: HIV, Hepatitis B, Hepatitis C, Anticoagulant Therapy - Surgical History Surgical History: None Surgery Procedure, Year, and Place: 08[place] [facility] [place], [place] [facility] [place]. c- section. NERVE TRANSPLANT IN LEFT ARM. TENDON RELEASE LEFT WRIST - Family History Known Family History: Positive: Cardiac Disease, Hypertension, Diabetes - Social History Alcohol Use: Rare Substance Use Type: None Smoking Status (MU): Heavy Every Day Tobacco Smoker Type: Cigarettes Amount Used/How Often: 10 cig a day Length of Time of Smoking/Using Tobacco: 34 yrs Have You Smoked in the Last Year: Yes Household Exposure Type: Cigarettes - Immunization History Most Recent Influenza Vaccination: Never Most Recent Tetanus Shot: Within past 10 years Most Recent Pneumonia Vaccination: Never Review of Systems Constitutional: Negative Skin: Negative Eyes: Negative ENT: Ear Ache Respiratory: Negative Cardiovascular: Chest Pain Gastrointestinal: Negative Motor: Negative Neurovascular: Negative Musculoskeletal: Negative Neurological: Negative Psychological: Negative Is Patient Immunocompromised?: No All Other Systems Reviewed And Are Negative: Yes Physical Exam Triage Information Reviewed: Yes Appearance: Well-Appearing, No Pain Distress, Well-Nourished Vital Signs: Initial Vital Signs Temp 98.5 F 04/23/18 14:58 Pulse 65 04/23/18 14:58 Resp 16 04/23/18 14:58 BP 120/78 04/23/18 14:58 Pulse Ox 97 04/23/18 14:58 Vital Signs Reviewed: Yes Eye Exam: Normal Eyes: Positive: Conjunctiva Clear ENT Exam: Normal ENT: Positive: Normal ENT inspection, Pharynx normal, Pharyngeal erythema, Nasal congestion, Nasal drainage, TMs normal Neck exam: Normal Neck: Positive: Supple Respiratory: Positive: Lungs clear, Normal breath sounds, No respiratory distress Cardiovascular: Positive: RRR Abdomen Description: Positive: Nontender, Soft Bowel Sounds: Positive: Present Musculoskeletal Exam: Normal Musculoskeletal: Positive: Strength Intact, ROM Intact, No Edema Neurological Exam: Normal Neurological: Positive: Alert, Muscle Tone Normal Psychological Exam: Normal Psychological: Positive: Age Appropriate Behavior Skin Exam: Normal Diagnostics - EKG Cardiac Rate: NL - AT 14:53 Cardiac Rhythm: Sinus: Normal - 61 BPM Ectopy: None ST Segment: Normal EKG Comparison: No Significant Change - Assessment/Plan Course Of Treatment: Patient her main concern is whether or not she is having any cardiac issues today. She does have risk factors of hypertension and her brother having a heart attack. Her EKG she did not see any obvious change from her prior EKG. I recommended going to the emergency department for further evaluation. She declined transport by ambulance she'll go by POV. - Clinical Impression Provider Diagnoses: CHEST PAIN. BILATERAL EAR PAIN Discharge - Sign-Out/Discharge Documenting (check all that apply): Patient Departure All imaging exams completed and their final reports reviewed: No Studies - Discharge Plan Condition: Stable Disposition: HOME-RECOMMEND TO ED Patient Education Materials: Chest Pain (ED) Referrals: Jose Camacho MD [Primary Care Provider] - Additional Instructions: GO DIRECTLY TO THE EMERGENCY DEPARTMENT FOR FURTHER EVALUATION. - Billing Disposition and Condition Condition: STABLE Disposition: Home-Recommend to ED
[2018-04-23 16:58] VITALS: BP 116/69
== END 2018-04-23 16:53 | disposition home health service (06) ==
LOC: UCEAST 14:45
DX: R07.89 Other chest pain (principal); H92.03 Otalgia, bilateral; Z88.6 Allergy status to analgesic agent; F17.210 Nicotine dependence, cigarettes, uncomplicated
CPT/HCPCS: 93005; 99212; G0463

== ENCOUNTER 2018-04-23 17:19 | Observation (INO) | payer MEDICARE, MEDICAID ==
[2018-04-23 19:00] LABS: ABS Basophils 0.1 10^3/ul (0-0.2); ABS Eosinophils 0.2 10^3/ul (0-0.6); ABS Lymphocytes 2.7 10^3/ul (1.0-4.8); ABS Monocytes 0.5 10^3/ul (0-0.8); ABS Neutrophils 3.6 10^3/ul (1.5-7.7); ABS Nucleated RBC 0 10^3/ul; Eosinophil % 2.2 % (0-6); Hematocrit 45 % (35-47); Hemoglobin 15.2 g/dl (12.0-16.0); Lymphocyte % 38.7 % (25-47); Mean Corpuscular HGB Conc 34 g/dl (31-36); Mean Corpuscular Hemoglobin 32 pg (27-31); Mean Corpuscular Volume 94 fL (80-97); Mean Platelet Volume 8.7 um3 (7.4-10.4); Nucleated Red Blood Cells % 0.1; Platelet Count 174 10^3/ul (150-450); Red Blood Count 4.73 10^6/ul (4.00-5.40); Red Cell Distribution Width 14 % (10.5-15)
[2018-04-23 19:20] LABS: EGFR Non-African American 69.4 (>60)
--- NOTE | 2018-04-23 20:00 | ED ---
HPI Chest Pain - HPI Summary HPI Summary: This patient is a 58 year old F presenting to [facility] with a chief complaint of constant chest pain that began 3 days ago. The patient rates the pain 2/10 in severity. Symptoms aggravated by nothing. Symptoms alleviated by nothing. Patient reports SOB and nasal congestion. Patient denies nausea, vomiting, and dizziness. Patient states she feels like she has a bubble in her chest. - History of Current Complaint Chief Complaint: EDAsthma Time Seen by Provider: 04/23/18 19:41 Hx Obtained From: Patient Hx Last Menstrual Period: post Onset/Duration: Started Days Ago, Atraumatic, Still Present Timing: Constant Initial Severity: Mild Current Severity: Mild Pain Intensity: 2 Pain Scale Used: 0-10 Numeric Chest Pain Location: Diffuse Chest Pain Radiates: No Character: Pressure/Squeezing Aggravating Factor(s): Nothing Alleviating Factor(s): Nothing Associated Signs and Symptoms: Positive: Shortness of Breath, Nasal Congestion. Negative: Dizziness, Nausea, Vomiting - Allergy/Home Medications Allergies/Adverse Reactions: Allergies Allergy/AdvReac Type Severity Reaction Status Date / Time acetaminophen Allergy Palpitation Verified 04/23/18 17:28 s enviromental Allergy Eyes Uncoded 04/23/18 15:03 Itchy/Swollen/Red/Watery PMH/Surg Hx/FS Hx/Imm Hx Previously Healthy: No Endocrine/Hematology History: Reports: Hx Thyroid Disease Denies: Hx Anticoagulant Therapy, Hx Diabetes Cardiovascular History: Reports: Hx Angina, Hx Hypercholesterolemia, Hx Hypertension Denies: Hx Congestive Heart Failure, Hx Deep Vein Thrombosis, Hx Myocardial Infarction, Hx Pacemaker/ICD Respiratory History: Reports: Hx Asthma, Hx Sleep Apnea Denies: Hx Chronic Obstructive Pulmonary Disease (COPD), Hx Lung Cancer, Hx Pneumonia, Hx Pulmonary Embolism GI History: Reports: Hx Gastroesophageal Reflux Disease Denies: Hx Gall Bladder Disease, Hx Gastrointestinal Bleed, Hx Ulcer, Hx Urosepsis History: Denies: Hx Kidney Stones, Hx Renal Disease Musculoskeletal History: Reports: Hx Arthritis - knees Sensory History: Denies: Hx Hearing Aid Neurological History: Denies: Hx Dementia, Hx Migraine, Hx Seizures, Hx Transient Ischemic Attacks (TIA) Psychiatric History: Reports: Hx Depression Denies: Hx Anxiety, Hx Panic Disorder, Hx Schizophrenia, Hx Bipolar Disorder - Cancer History Hx Chemotherapy: No Hx Radiation Therapy: No - Surgical History Surgery Procedure, Year, and Place: 08/25 [facility] [place], 02/28 [facility] [place]. c- section. NERVE TRANSPLANT IN LEFT ARM. TENDON RELEASE LEFT WRIST Infectious Disease History: No Infectious Disease History: Denies: Hx Clostridium Difficile, Hx Hepatitis, Hx Human Immunodeficiency Virus (HIV), Hx of Known/Suspected MRSA, Hx Shingles, Hx Tuberculosis, Hx Known/ Suspected VRE, Hx Known/Suspected VRSA, History Other Infectious Disease, Traveled Outside the [place] in Last 30 Days - Family History Known Family History: Positive: Cardiac Disease - Brother - NC at age 52, Hypertension, Diabetes - Social History Occupation: Disabled Lives: Alone Alcohol Use: Rare Hx Substance Use: No Substance Use Type: Reports: None Hx Tobacco Use: Yes Smoking Status (MU): Heavy Every Day Tobacco Smoker Type: Cigarettes Amount Used/How Often: 10 cig a day Length of Time of Smoking/Using Tobacco: 34 yrs Have You Smoked in the Last Year: Yes Review of Systems Positive: Other - Positive nasal congestion Positive: Chest Pain Positive: Shortness Of Breath Negative: Vomiting, Nausea Neurological: Other - Negative dizziness All Other Systems Reviewed And Are Negative: Yes Physical Exam - Summary Physical Exam Summary: Appearance: Well appearing, no pain distress Skin: warm, dry, reflects adequate perfusion Head/face: normal Eyes: EOMI, JOANN ENT: normal Neck: supple, non-tender Respiratory: CTA, breath sounds present Cardiovascular: RRR, pulses symmetrical Abdomen: non-tender, soft Bowel: present Musculoskeletal: normal, strength/ROM intact Neuro: normal, sensory motor intact, A&Ox3 Triage Information Reviewed: Yes Vital Signs On Initial Exam: Initial Vitals Temp Pulse Resp BP Pulse Ox 97.9 F 63 18 143/78 96 04/23/18 17:23 04/23/18 17:23 04/23/18 17:23 04/23/18 17:23 04/23/18 17:23 Vital Signs Reviewed: Yes Diagnostics - Vital Signs Vital Signs Temp Pulse Resp BP Pulse Ox 04/23/18 19:21 97.6 F 64 24 143/87 95 04/23/18 17:23 97.9 F 63 18 143/78 96 - Laboratory Lab Results: Lab Results 04/23/18 04/23/18 04/23/18 Range/Units 18:48 18:48 18:48 WBC 7.0 (3.5-10.8) 10^3/ul RBC 4.73 (4.00-5.40) 10^6/ul Hgb 15.2 (12.0-16.0) g/dl Hct 45 (35-47) % MCV 94 (80-97) fL MCH 32 H (27-31) pg MCHC 34 (31-36) g/dl RDW 14 (10.5-15) % Plt Count 174 (150-450) 10^3/ul MPV 8.7 (7.4-10.4) um3 Neut % (Auto) 51.4 (38-83) % Lymph % (Auto) 38.7 (25-47) % [place] % (Auto) 6.5 (0-7) % Eos % (Auto) 2.2 (0-6) % Baso % (Auto) 1.2 (0-2) % Absolute Neuts (auto) 3.6 (1.5-7.7) 10^3/ul Absolute Lymphs (auto) 2.7 (1.0-4.8) 10^3/ul Absolute Monos (auto) 0.5 (0-0.8) 10^3/ul Absolute Eos (auto) 0.2 (0-0.6) 10^3/ul Absolute Basos (auto) 0.1 (0-0.2) 10^3/ul Absolute Nucleated RBC 0 10^3/ul Nucleated RBC % 0.1 Sodium 139 (135-145) mmol/L Potassium 3.5 (3.5-5.0) mmol/L Chloride 105 (101-111) mmol/L Carbon Dioxide 28 (22-32) mmol/L Anion Gap 6 (2-11) mmol/L BUN 9 (6-24) mg/dL Creatinine 0.84 (0.51-0.95) mg/dL Est GFR ( Amer) 84.0 (>60) Est GFR (Non-Af Amer) 69.4 (>60) BUN/Creatinine Ratio 10.7 (8-20) Glucose 91 (70-100) mg/dL Lactic Acid 1.5 (0.5-2.0) mmol/L Calcium 10.1 (8.6-10.3) mg/dL Total Bilirubin 0.30 (0.2-1.0) mg/dL AST 30 (13-39) U/L ALT 35 (7-52) U/L Alkaline Phosphatase 140 H (34-104) U/L Troponin I 0.04 H* (<0.04) ng/mL B-Natriuretic Peptide ( - 100) pg/mL Total Protein 8.0 (6.4-8.9) g/dL Albumin 4.5 (3.2-5.2) g/dL Globulin 3.5 (2-4) g/dL Albumin/Globulin Ratio 1.3 (1-3) 04/23/18 Range/Units 18:48 WBC (3.5-10.8) 10^3/ul RBC (4.00-5.40) 10^6/ul Hgb (12.0-16.0) g/dl Hct (35-47) % MCV (80-97) fL MCH (27-31) pg MCHC (31-36) g/dl RDW (10.5-15) % Plt Count (150-450) 10^3/ul MPV (7.4-10.4) um3 Neut % (Auto) (38-83) % Lymph % (Auto) (25-47) % [place] % (Auto) (0-7) % Eos % (Auto) (0-6) % Baso % (Auto) (0-2) % Absolute Neuts (auto) (1.5-7.7) 10^3/ul Absolute Lymphs (auto) (1.0-4.8) 10^3/ul Absolute Monos (auto) (0-0.8) 10^3/ul Absolute Eos (auto) (0-0.6) 10^3/ul Absolute Basos (auto) (0-0.2) 10^3/ul Absolute Nucleated RBC 10^3/ul Nucleated RBC % Sodium (135-145) mmol/L Potassium (3.5-5.0) mmol/L Chloride (101-111) mmol/L Carbon Dioxide (22-32) mmol/L Anion Gap (2-11) mmol/L BUN (6-24) mg/dL Creatinine (0.51-0.95) mg/dL Est GFR ( Amer) (>60) Est GFR (Non-Af Amer) (>60) BUN/Creatinine Ratio (8-20) Glucose (70-100) mg/dL Lactic Acid (0.5-2.0) mmol/L Calcium (8.6-10.3) mg/dL Total Bilirubin (0.2-1.0) mg/dL AST (13-39) U/L ALT (7-52) U/L Alkaline Phosphatase (34-104) U/L Troponin I (<0.04) ng/mL B-Natriuretic Peptide 20 ( - 100) pg/mL Total Protein (6.4-8.9) g/dL Albumin (3.2-5.2) g/dL Globulin (2-4) g/dL Albumin/Globulin Ratio (1-3) Result Diagrams: 04/23/18 18:48 04/23/18 18:48 Lab Statement: Any lab studies that have been ordered have been reviewed, and results considered in the medical decision making process. - Radiology CXR Radiology Interpretation Completed By: ED Physician Summary of Radiographic Findings: CXR reveals, per ED physician, no acute disease. - EKG 1930 Cardiac Rate: Bradycardia EKG Rhythm: Sinus Rhythm - 57 BPM Summary of EKG Findings: An EKG taken at 1930 reveals sinus bradycardia t 57 BPM with non-specific T wave changes. Chest Pain Course/Dx - Course Course Of Treatment: This patient is a 58 year old F presenting to [facility] with a chief complaint of constant chest pain that began 3 days ago. Physical Exam Findings: Nml. An EKG taken at 1930 reveals sinus bradycardia t 57 BPM with non- specific T wave changes. CXR reveals, per ED physician, no acute disease. Bloodwork obtained. In the ED course the patient was given aspirin, contrast, and nitroglycerin. Consult with Dr. Earl (hospitalist) at 2039. She agrees to admit patient for further evaluation. The patient is agreeable with this plan. - Chest Pain Differential Diagnosis/HQI/PQRI: Acute NC, ACS, Angina, Chest Wall, Lower Respiratory Infection, Pulmonary Embolism - Diagnoses Provider Diagnoses: Chest pain, rule out acute myocardial infarction - Provider Notifications Discussed Care Of Patient With: Becka Earl Time Discussed With Above Provider: 20:40 Instructed by Provider To: Other - Consult with Dr. Earl (hospitalist) at 2039. She agrees to admit patient for further evaluation. Discharge - Sign-Out/Discharge Documenting (check all that apply): Patient Departure - [place] [facility] [place]charge Plan Condition: Stable Disposition: ADMITTED TO [facility] - Billing Disposition and Condition Condition: STABLE Disposition: Admitted to [facility] - Attestation Statements Document Initiated by Scribe: Yes Documenting Scribe: Neelima Varela Provider For Whom Scribe is Documenting (Include Credential): Rafi Louise MD Scribe Attestation: INeelima, scribed for Rafi Louise MD on 04/23/18 at 2207. Scribe Documentation Reviewed: Yes Provider Attestation: The documentation as recorded by the Neelima escobar accurately reflects the service I personally performed and the decisions made by me, Rafi Louise MD
[2018-04-23] MEDS ORDERED: Aspirin 81 mg CHEW TAB* 81 MG TAB.CHEW PO ONE (20:04)
[2018-04-23] MEDS ORDERED: Nitroglycerin 2% OINT* 1 GM PAK TOPICAL ONE (20:05)
[2018-04-23] MEDS ORDERED: Iohexol 350* (CONTRAST) 500 ML MDV IV ONE (20:59)
[2018-04-23] MEDS ORDERED: Temazepam CAP* 15 MG PO PRN (21:31)
[2018-04-23] MEDS ORDERED: Albuterol HFA INHALER* 8 gm MDI INH PRN (21:39)
--- NOTE | 2018-04-23 21:49 | RAD ---
EXAM: CT Angiography Chest With Intravenous Contrast EXAM DATE/TIME: 04/23/2018 9:17 PM CLINICAL HISTORY: 58 years old, female; Pain; Chest pain; Additional info: Cp/pe TECHNIQUE: Axial computed tomographic angiography images of the chest with intravenous contrast using CT angiography protocol. All CT scans at this facility use at least one of these dose optimization techniques: automated exposure control; mA and/or kV adjustment per patient size (includes targeted exams where dose is matched to clinical indication); or iterative reconstruction. Coronal and sagittal reformatted images were created and reviewed. MIP reconstructed images were created and reviewed. CONTRAST: 82 ml of OMNIPAQUE 320 administered intravenously. COMPARISON: DX CXR CHEST PA LAT 2 VWS 04/23/2018 6:24 PM FINDINGS: Pulmonary arteries: Pulmonary arteries are well opacified to the subsegmental branches. Dilated main pulmonary artery measuring 3.7 cm. No filling defects throughout the pulmonary artery tree. Aorta: The aorta demonstrates mild atherosclerotic calcification. Lungs: No pulmonary nodules, masses, or consolidations. No bronchiectasis, peribronchial thickening, or luminal defects. Pleural space: Normal. No pneumothorax. No pleural effusion. Heart: Normal. No cardiomegaly. No pericardial effusion. Thyroid: No thyroid nodules. Bones/joints: The thoracic spine demonstrates moderate degenerative changes at multiple levels. No fractures. No suspicious bone lesions. Soft tissues: Normal. Lymph nodes: Normal. No enlarged lymph nodes. IMPRESSION: 1. No pulmonary emboli. No additional findings to correlate with patient's symptomatology. 2. Findings which in the proper clinical setting can be seen in pulmonary hypertension. To contact [facility] with a general question: [facility] - [phone] For direct physician to physician contact: Physician Hotline - [phone] [facility] ([facility] Facility ID #[id number])
[2018-04-23] MEDS: Heparin VIAL(*) 5000 UNITS/ML VIAL (FIVE THOUSAND) SUBCUT SCH (23:10)
--- NOTE | 2018-04-24 01:00 | HP ---
CC: Dr. Camacho * HISTORY AND PHYSICAL: DATE OF ADMISSION: 04/23/18 PRIMARY CARE PROVIDER: Dr. Camacho. CHIEF COMPLAINT: Shortness of breath and chest pain. HISTORY OF PRESENT ILLNESS: Ms. Bedolla is a 58-year-old female with history of obesity, obstructive sleep apnea, COPD, who presented to the hospital complaining of a "bubble" sensation in the mid of her chest substernally at the level of manubrium sterni. The patient stated that the bubble had been with her for 3 days. When she exercises, it is worse and she also experiences shortness of breath with it. She stated that she usually "wheezes" and that had been unchanged. She denies any cough. The sensation of the bubble is not pleuritic and she has not "figured out" what makes it better or worse, although it started improving with the treatment in the emergency department. In the emergency department, the patient received a dose of nitroglycerin and aspirin. She is going to be placed on overnight observation with the diagnosis of chest pain rule out. PAST MEDICAL HISTORY: 1. History of COPD, not on oxygen. 2. History of obstructive sleep apnea, on CPAP. 3. History of hypothyroidism. 4. Obesity. 5. Gastroesophageal reflux disease. 6. Depression. 7. Hypertension. 8. Last stress test was in June of 2016, which was negative. HOME MEDICATIONS: Include: 1. Neurontin 800 mg daily. 2. Levothyroxine 50 mcg daily. 3. Indapamide 2.5 mg daily. 4. Flovent nasal spray that was coded by the pharmacist in the emergency department, but the patient stated that she does not take it. Instead, she had been taking Spiriva 1 inhalation daily. 5. Celexa 20 mg daily. 6. Atenolol 50 mg daily. 7. Albuterol inhaler on a p.r.n. basis. 8. Pravastatin 20 mg daily. 9. Potassium chloride 10 mEq daily. 10. Omeprazole 40 mg daily. 11. Naproxen 500 mg b.i.d. 12. Nifedipine ER 60 mg daily. ALLERGIES: ACETAMINOPHEN causes palpitations. FAMILY HISTORY: Positive for brother with history of NE at the age of 53, who of heart attack at that time. 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 She lives with her son, Dequan, who is her healthcare proxy. She smokes 10 cigarettes a day and she started smoking when she was in her 20s. She rarely uses alcohol. Denies any drug use. She is fully independent with her ADLs. REVIEW OF SYSTEMS: Please see history of present illness. In addition to above mentioned, the patient stated that she has not had any fevers or sore throat. Her appetite had been good. She denies any swelling in her legs. She denies any abdominal pain. All the remaining 12 systems were reviewed with the patient and were otherwise negative. PHYSICAL EXAMINATION GENERAL: The patient is a very pleasant 58-year-old obese female, who is in no acute distress. Alert, awake, and oriented x3. VITAL SIGNS: Blood pressure of 142/85, heart rate of 53 and regular, respiratory rate 14, oxygen saturation 90% on room air, temperature of 97.6. HEENT: Head atraumatic, normocephalic. Eyes: Pupils are equal and reactive to light and accommodation. Oropharynx is clear. Mucosa moist. NECK: Supple. No JVD. No bruit bilaterally. RESPIRATORY: Scant wheezes in bilateral mid to upper lungs anteriorly only, posteriorly the lungs are clear. CARDIOVASCULAR: Regular rate and rhythm. No murmur. ABDOMEN: Soft, nontender. Bowel sounds are present in all 4 quadrants. EXTREMITIES: There is no edema. Pulses +2 bilaterally. No clubbing or cyanosis. NEURO: Speech clear. Cranial nerves II through XII grossly intact. Motor strength is 5/5 bilaterally. DIAGNOSTIC STUDIES/LAB DATA: The patient's 12-lead EKG read by myself showed sinus bradycardia with a heart rate of 57 beats per minute with prolonged DE interval and likely first-degree AV block. No acute ST changes comparing with an EKG in June of 2016. The patient had a CTA obtained, the radiologist report is pending. There is no evidence of infiltrates by my evaluation of the CT angiogram of the chest. I am unable to determine if there is PE or not. CBC: White blood cell count of 7.0, hemoglobin 15.2, hematocrit of 45, and platelets of 174. Sodium of 139, potassium 3.5, chloride 105, carbon dioxide 28, BUN 9, creatinine 0.84. Liver function test unremarkable apart for mildly elevated Alk phos at 140, which is chronic in this patient. Troponin of 0.04, which is consistent with prior reports in June of 2016 and 2014. In fact, the patient always had troponin within the range of 0.08 to 0.03 dating back to 2010. Brain natriuretic peptide was 20. ASSESSMENT AND PLAN: 1. A 58-year-old obese female with a BMI of 37 as well as history of hypertension, who presents complaining of some nonspecific chest pain. At this time, the patient's troponin is consistent with prior reports. The patient was recommended by the ED provider to be observed overnight for stress test in the morning. Her CT angiogram of the chest is still pending at the time of dictation. If her troponins continued to be within the chronic range, she is going to under a treadmill stress test in the morning. 2. For her history chronic obstructive pulmonary disease, she is going to be continued on her inhalers. She has scant wheezes and is not in chronic obstructive pulmonary disease exacerbation. 3. For obstructive sleep apnea, CPAP is going to be provided for the patient overnight. 4. For her hypertension, we will continue her outpatient medications. 5. For gastroesophageal reflux disease, her PPI is going to be continued. 6. The patient's code status is full and her surrogate is her son as mentioned above. TIME SPENT: Approximately 62 minutes was spent on admission of this patient, more than half that time was spent [id number] with the patient during the interview and physical exam. [id number]/[facility] #: [id number] JERICHO
[2018-04-24] MEDS: Heparin VIAL(*) 5000 UNITS/ML VIAL (FIVE THOUSAND) SUBCUT SCH (05:30)
[2018-04-24] MEDS ORDERED: Levothyroxine TAB* 50 MCG TAB PO SCH (06:00)
[2018-04-24 06:08] LABS: ABS Basophils 0.1 10^3/ul (0-0.2); ABS Eosinophils 0.2 10^3/ul (0-0.6); ABS Monocytes 0.5 10^3/ul (0-0.8); ABS Neutrophils 3.2 10^3/ul (1.5-7.7); ABS Nucleated RBC 0 10^3/ul; Eosinophil % 3.2 % (0-6); Hematocrit 42 % (35-47); Hemoglobin 14.3 g/dl (12.0-16.0); Mean Corpuscular HGB Conc 35 g/dl (31-36); Mean Corpuscular Hemoglobin 32 pg (27-31); Mean Corpuscular Volume 93 fL (80-97); Mean Platelet Volume 8.5 um3 (7.4-10.4); Nucleated Red Blood Cells % 0.2; Platelet Count 166 10^3/ul (150-450); Red Blood Count 4.46 10^6/ul (4.00-5.40); Red Cell Distribution Width 14 % (10.5-15)
[2018-04-24 06:41] LABS: EGFR Non-African American 90.1 (>60)
--- NOTE | 2018-04-24 07:52 | RAD ---
HISTORY: chest pain COMPARISONS: June 26, 2016 VIEWS: 4: Frontal dual-energy and lateral views of the chest. FINDINGS: CARDIOMEDIASTINAL SILHOUETTE: The cardiac silhouette is mildly enlarged. The cardiomediastinal silhouette is otherwise normal. CLOTILDE: The clotilde are normal. PLEURA: The costophrenic angles are sharp. No pleural abnormalities are noted. LUNG PARENCHYMA: There is mild diffuse pattern of reticular opacification with indistinct pulmonary vessels along the lower lungs. ABDOMEN: The upper abdomen is clear. There is no subphrenic gas. BONES AND SOFT TISSUES: No bone or soft tissue abnormalities are noted. OTHER: None. IMPRESSION: CARDIOMEGALY WITH MILD PULMONARY INTERSTITIAL EDEMA. R1F
[2018-04-24] MEDS ORDERED: Atenolol TAB* 25 MG PO SCH (09:00)
[2018-04-24] MEDS ORDERED: Indapamide TAB* 2.5 MG PO SCH (09:00)
[2018-04-24] MEDS ORDERED: Aspirin 81 mg CHEW TAB* 81 MG TAB.CHEW PO SCH (09:00)
[2018-04-24] MEDS ORDERED: Omeprazole CAP* 20 MG PO SCH (09:00)
[2018-04-24] MEDS ORDERED: Potassium Chlor TAB* 10 MEQ TAB.ER PO SCH (09:00)
[2018-04-24] MEDS ORDERED: NIFEdipine ER TAB* 60 MG PO SCH (09:00)
[2018-04-24] MEDS ORDERED: Citalopram TAB* 20 MG PO SCH (09:00)
[2018-04-24] MEDS ORDERED: Regadenoson* 0.4 MG/5 ML SYRINGE ONE (14:03)
[2018-04-24 16:45] VITALS: BP 127/69
--- NOTE | 2018-04-25 06:54 | RAD ---
HISTORY: CP COMPARISONS: June 27, 2016 TECHNIQUE: A 1 day stress/rest myocardial perfusion study was performed, with pharmacologic stress. The stress portion was monitored by Dr. Cardenas. Gated SPECT imaging was performed, without CT-based attenuation correction secondary to patient claustrophobia DOSE: Stress: Technetium 99m tetrofosmin, 26.95 millicuries, injected at 1:24 PM on April 24, 2018 Rest: Technetium 99m tetrofosmin, 10.64 millicuries, injected at 9:42 AM on April 24, 2018 Pharmacologic agent: Lexiscan FINDINGS: CARDIAC MONITORING: No changes with stress EF: 65 % TID: 0.95 MOTION: Normal motion, with normal wall thickening. PERFUSION: There is a stable defect of the lateral base that is similar to the previous examination and resolves with attenuation correction on the previous examination, likely representing attenuation artifact. There are no definite fixed or reversible diffusion defects. OTHER: None IMPRESSION: NO DEFINITE FIXED OR REVERSIBLE PERFUSION DEFECTS. ASSESSMENT: LOW RISK. Based on imaging criteria from ACC/AHA 2002. Guideline Update for the Management of Patient's with Chronic Stable Angina, table 23. Noninvasive Risk Stratification.
--- NOTE | 2018-04-26 09:57 | DS ---
DISCHARGE SUMMARY: DATE OF ADMISSION: 04/23/18 DATE OF DISCHARGE: 04/24/18 ADMITTING PROVIDER: Becka Earl MD PRIMARY CARE PROVIDER: Jose Camacho MD ATTENDING ON DAY OF DISCHARGE: Tuan Luciano MD CHIEF COMPLIANT: Shortness of breath and chest discomfort. PRINCIPAL DIAGNOSIS: Acute coronary syndrome ruled out. HISTORY OF PRESENT ILLNESS AND HOSPITAL COURSE: Emperatriz Bedolla is a 58-year- old female with past medical history of obesity, obstructive sleep apnea, COPD, current smoker who presented to the hospital with complaints of "bubble" sensation in the middle of her substernal chest. It started 3 days prior, was worse with exercise that was accompanied by shortness of breath. She attested to a baseline wheeze, denied any cough. Please see H and P of Dr. Becka Earl for full details. She denied the bubble sensation was pleuritic, stated that it improved with treatments in the emergency room, which included nitroglycerin and aspirin. She was admitted for chest pain rule out. Her initial EKG showed sinus bradycardia with a first- degree AV block, no acute ST changes. Initial troponin was 0.04, stayed that way throughout 3 readings. She had a CT angiogram which did not show evidence of pulmonary embolism and no other additional findings to correlate with the patient's symptoms, but did have a dilated main pulmonary artery measuring 3.7 cm and in proper clinical setting could be correlated with pulmonary hypertension. She attempted exercise stress test the following morning, but had developed knee pain and results were uninterpretable and also because of baseline EKG abnormalities, she went through a Lexiscan nuclear stress test which demonstrated a stable defect in the that is similar to previous examination and there was also attenuation correction. The overall impression was no definite fixed or reversible perfusion defects. It was a low-risk study. She was feeling improved and was discharged to follow up with Dr. Camacho. DISCHARGE MEDICATIONS: Include: 1. Albuterol 2 puffs inhaled q. 4h. p.r.n. 2. Aspirin 81 mg daily (new). 3. Atenolol 50 mg p.o. daily. 4. Citalopram 20 mg p.o. daily. 5. Flovent 1 puff inhaled daily. 6. Indapamide 2.5 mg p.o. daily. 7. Levothyroxine 50 mcg p.o. daily. 8. Loratadine 10 mg daily. 9. Naproxen 500 mg p.o. b.i.d. 10. Nifedipine 60 mg daily. 11. Omeprazole 40 mg p.o. daily. 12. Potassium chloride 10 mEq p.o. daily. 13. Pravastatin 20 mg p.o. q.p.m. DISCHARGE DIET: Heart healthy. FOLLOWUP: Please follow up with Dr. Jose Camacho within 7 days of discharge. TIME SPENT: Time spent on discharge, 35 minutes. [id number]/[facility] #: [id number] MTDD
== END 2018-04-24 19:52 | disposition home or self-care (01) ==
LOC: ED 17:19 → MEDTELE 21:31
PROVIDERS: ADMIT Internal Medicine; ATTEND Internal Medicine
DX: R06.02 Shortness of breath (principal); R09.81 Nasal congestion; I51.7 Cardiomegaly; R07.9 Chest pain, unspecified; Z79.82 Long term (current) use of aspirin; F17.210 Nicotine dependence, cigarettes, uncomplicated; E66.9 Obesity, unspecified; G47.33 Obstructive sleep apnea (adult) (pediatric); I10 Essential (primary) hypertension; F32.9 Major depressive disorder, single episode, unspecified; J44.9 Chronic obstructive pulmonary disease, unspecified; R07.89 Other chest pain; H92.03 Otalgia, bilateral; Z88.6 Allergy status to analgesic agent
CPT/HCPCS: 36415; 71046; 71275; 78452; 80048; 80053; 83605; 83880; 84484; 85025; 93005; 93017; 94660; 99283; A9270-GY; A9502; G0378; J1644; J2785; Q9967

== ENCOUNTER 2018-06-06 08:21 | Emergency (ER) | payer MEDICARE, MEDICAID ==
[2018-06-06] MEDS ORDERED: Ondansetron INJ* 2 MG/ML VIAL IV ONE (08:38)
[2018-06-06] MEDS ORDERED: Ketorolac INJ* 30 MG/ML 1 ML VIAL IV PUSH ONE (08:38)
--- NOTE | 2018-06-06 08:57 | ED ---
Abdominal Pain/Female - HPI Summary HPI Summary: Pt is a 58 y/o female who presents to the ED c/o abdominal pain. She states she s had RUQ pain for the past few days. Last night she ate chocolate cake and mashed potatoes. This morning, the sharp pain became worse, and is now rated an 8/10 in severity. Pt c/o nausea, but denies any fever or vomiting. She has had normal BMs. She has a history of gallbladder issues. Pt is a smoker. - History of Current Complaint Chief Complaint: EDAbdPain Stated Complaint: RIGHT LOWER ABD PAIN Time Seen by Provider: 06/06/18 08:39 Hx Obtained From: Patient Hx Last Menstrual Period: post Onset/Duration: Gradual Onset, Lasting Days - 2-3, Worse Since Timing: Constant Severity Currently: Severe Pain Intensity: 8 Pain Scale Used: 0-10 Numeric Location: Discrete At: RUQ Radiates: No Character: Sharp Aggravating Factor(s): Food - Chocolate cake and mashed potatoes Alleviating Factor(s): Nothing Associated Signs and Symptoms: Positive: Nausea. Negative: Fever, Vomiting Allergies/Adverse Reactions: Allergies Allergy/AdvReac Type Severity Reaction Status Date / Time acetaminophen Allergy Palpitation Verified 04/23/18 17:28 s enviromental Allergy Eyes Uncoded 04/23/18 15:03 Itchy/Swollen/Red/Watery PMH/Surg Hx/FS Hx/Imm Hx Endocrine/Hematology History: Reports: Hx Thyroid Disease Denies: Hx Anticoagulant Therapy, Hx Diabetes Cardiovascular History: Reports: Hx Angina, Hx Hypercholesterolemia, Hx Hypertension Denies: Hx Congestive Heart Failure, Hx Deep Vein Thrombosis, Hx Myocardial Infarction, Hx Pacemaker/ICD Respiratory History: Reports: Hx Asthma, Hx Chronic Obstructive Pulmonary Disease (COPD), Hx Sleep Apnea Denies: Hx Lung Cancer, Hx Pneumonia, Hx Pulmonary Embolism GI History: Reports: Hx Gastroesophageal Reflux Disease Denies: Hx Gall Bladder Disease, Hx Gastrointestinal Bleed, Hx Ulcer, Hx Urosepsis History: Denies: Hx Kidney Stones, Hx Renal Disease Musculoskeletal History: Reports: Hx Arthritis - knees Sensory History: Denies: Hx Contacts or Glasses, Hx Hearing Aid Opthamlomology History: Denies: Hx Contacts or Glasses Neurological History: Denies: Hx Dementia, Hx Migraine, Hx Seizures, Hx Transient Ischemic Attacks (TIA) Psychiatric History: Reports: Hx Depression Denies: Hx Anxiety, Hx Panic Disorder, Hx Schizophrenia, Hx Bipolar Disorder - Cancer History Hx Chemotherapy: No Hx Radiation Therapy: No - Surgical History Surgery Procedure, Year, and Place: 08/25 [facility] [place]- D&C, 02/28 [facility] [place]- hysterectomy. c- section. NERVE TRANSPLANT IN LEFT ARM. TENDON RELEASE LEFT WRIST Infectious Disease History: No Infectious Disease History: Denies: Hx Clostridium Difficile, Hx Hepatitis, Hx Human Immunodeficiency Virus (HIV), Hx of Known/Suspected MRSA, Hx Shingles, Hx Tuberculosis, Hx Known/ Suspected VRE, Hx Known/Suspected VRSA, History Other Infectious Disease, Traveled Outside the [place] in Last 30 Days - Family History Known Family History: Positive: Cardiac Disease - Brother - [place] at age 52, Hypertension, Diabetes - Social History Alcohol Use: None Hx Substance Use: No Substance Use Type: Reports: None Hx Tobacco Use: Yes Smoking Status (MU): Heavy Every Day Tobacco Smoker Type: Cigarettes Amount Used/How Often: 10 cig a day Length of Time of Smoking/Using Tobacco: 34 yrs Have You Smoked in the Last Year: Yes Review of Systems Negative: Fever Positive: Abdominal Pain, Nausea. Negative: Vomiting All Other Systems Reviewed And Are Negative: Yes Physical Exam - Summary Physical Exam Summary: Appearance: Well appearing, mild pain distress, obese Skin: warm, dry, reflects adequate perfusion Head/face: normal Eyes: EOMI, JOANN ENT: mucous membranes moist Neck: supple, non-tender Respiratory: CTA, breath sounds present Cardiovascular: RRR, pulses symmetrical Abdomen: soft, moderate-severe RUQ tenderness with guarding, positive [place] sign Bowel Sounds: present Musculoskeletal: normal, strength/ROM intact Neuro: normal, sensory motor intact, A&Ox3 Triage Information Reviewed: Yes Vital Signs On Initial Exam: Initial Vitals Temp Pulse Resp BP Pulse Ox 98.9 F 74 18 129/73 97 06/06/18 08:31 06/06/18 08:31 06/06/18 08:31 06/06/18 08:31 06/06/18 08:31 Vital Signs Reviewed: Yes Diagnostics - Vital Signs Vital Signs Temp Pulse Resp BP Pulse Ox 06/06/18 08:31 98.9 F 74 18 129/73 97 - Laboratory Result Diagrams: 06/06/18 09:11 06/06/18 09:11 Lab Statement: Any lab studies that have been ordered have been reviewed, and results considered in the medical decision making process. - Radiology CXR Radiology Interpretation Completed By: Radiologist Summary of Radiographic Findings: Cardiomegaly without evidence for pulmonary edema. Elevated lung volumes corresponding with history of COPD. No acute pulmonary process. evident. ED physician reviewed radiology report. - Ultrasound No standard instances Ultrasound Interpretation Completed By: Radiologist Summary of Ultrasound Findings: Gallbladder US: 1. CHOLELITHIASIS WITHOUT EVIDENCE FOR ACUTE CHOLECYSTITIS. 2. MULTIPLE HYPOECHOIC HEPATIC LESIONS. ONE OF THE LESIONS APPEARS TO INCREASED IN SIZE. RECOMMEND REPEAT MR IMAGING WITHOUT AND WITH CONTRAST FOR FURTHER EVALUATION. THIS SHOULD. BE PERFORMED ON THE 1.5 FRANCIE MRI SCANNER WITH EOVIST. ED physician reviewed radiology report. - EKG 8:40 Cardiac Rate: NL - 79 bpm EKG Rhythm: Sinus Rhythm ST Segment: Non-Specific EKG Comparison: Other - Minimal ST changes in anterior leads as compared to prior Summary of EKG Findings: Nl axis Re-Evaluation - Re-Evaluation First Eval Re-Evaluation Time: 11:07 Change: Improved Comment: Pt's pain is completely resolved. Abdominal Pain Fem Course/Dx - Course Course Of Treatment: Nurse's note reviewed. Patient presents with recurrent right upper quadrant pain. She has history of known liver masses that were again seen today. There is also a large gallstone [place]. There is no acute cholecystitis or pancreatitis. LFTs are normal. Troponin is elevated but at patient's baseline. She has had persistent troponin levels of 0.04 or higher. She has no active chest pain. Following medication with Toradol her pain was completely resolved. She is instructed to go on a low-fat diet and have outpatient MRI of the liver and HIDA scan of the gallbladder. SHe will follow up closely with her primary care physician. - Diagnoses Differential Diagnosis: Positive: Appendicitis, Gall Bladder Disease, Pancreatitis, Renal Colic Provider Diagnoses: Biliary colic, Liver mass, Cholelithiasis Discharge - Sign-Out/Discharge Documenting (check all that apply): Patient Departure - Discharge - Discharge Plan Condition: Improved Disposition: HOME Prescriptions: Hyoscyamine Sulfate [Levsin/Sl] 0.125 mg SL Q4H PRN #30 sub PRN Reason: abdominal cramping Ondansetron ODT TAB* [Zofran 4 MG Odt TAB*] 4 mg PO Q6H PRN #12 tab.odt PRN Reason: Nausea Patient Education Materials: Biliary Colic (ED) Referrals: Jose Camacho MD [Primary Care Provider] - Additional Instructions: Call your doctor today to schedule prompt follow-up. You'll need an MRI of your liver to better characterize the masses seen on it. You also need a HIDA scan to look at the function of your gallbladder. Strictly excluded fat from your diet. Return with fever, increased pain, jaundice, worse or other concerns. - Billing Disposition and Condition Condition: IMPROVED Disposition: Home - Attestation Statements Document Initiated by Robinson: Yes Documenting Scribe: Lora Laughlin Provider For Whom Robinson is Documenting (Include Credential): Polo Purvis MD Scribe Attestation: Lora Grossman scribed for Polo Purvis MD on 06/06/18 at 1222. Scribe Documentation Reviewed: Yes Provider Attestation: The documentation as recorded by the Lora escobar accurately reflects the service I personally performed and the decisions made by Polo mazariegos MD Status of Scribe Document: Viewed
[2018-06-06 09:23] LABS: ABS Basophils 0 10^3/ul (0-0.2); ABS Eosinophils 0.1 10^3/ul (0-0.6); ABS Lymphocytes 1.5 10^3/ul (1.0-4.8); ABS Monocytes 0.3 10^3/ul (0-0.8); ABS Neutrophils 2.9 10^3/ul (1.5-7.7); ABS Nucleated RBC 0 10^3/ul; Eosinophil % 1.6 %; Hematocrit 43 % (35-47); Hemoglobin 14.7 g/dl (12.0-16.0); Lymphocyte % 30.9 %; Mean Corpuscular HGB Conc 34 g/dl (31-36); Mean Corpuscular Hemoglobin 32 pg (27-31); Mean Corpuscular Volume 94 fL (80-97); Mean Platelet Volume 8.6 fL (7.4-10.4); Nucleated Red Blood Cells % 0; Platelet Count 189 10^3/ul (150-450); Red Cell Distribution Width 14 % (10.5-15); White Blood Count 4.8 10^3/ul (3.5-10.8)
[2018-06-06 09:29] LABS: INR 0.9 (0.77-1.02)
[2018-06-06 09:41] LABS: EGFR Non-African American 98.5 (>60)
[2018-06-06] MEDS ORDERED: Aspirin 81 mg CHEW TAB* 81 MG TAB.CHEW PO ONE (09:52)
[2018-06-06 11:52] VITALS: BP 132/64
== END 2018-06-06 11:50 | disposition home or self-care (01) ==
LOC: ED 08:21
DX: K80.50 Calculus of bile duct without cholangitis or cholecystitis without obstruction (principal); K80.20 Calculus of gallbladder without cholecystitis without obstruction; R16.0 Hepatomegaly, not elsewhere classified; R11.0 Nausea; Z88.6 Allergy status to analgesic agent; F17.210 Nicotine dependence, cigarettes, uncomplicated
CPT/HCPCS: 36415; 71045; 76705; 80053; 83605; 83690; 84484; 85025; 85610; 86140; 93005; 96374; 96375; 99282; A9270-GY; J1885; J2405

== ENCOUNTER 2018-07-08 05:46 | Day surgery (SDC) | payer MEDICARE, MEDICAID ==
[~2018-07-08 05:46] MED LIST: Buffered Lidocaine 1% SYRIN* 1 ML/SYRINGE INTRADERM ONE
[2018-07-08] MEDS ORDERED: Dexamethasone IV* 4 MG/ML 1 ML (4 MG) IV SLOW PU ONE (06:00)
[2018-07-08] MEDS ORDERED: Famotidine IV* 10 MG/ML 2 ML (20 mg) IV ONE (06:00)
[2018-07-08] MEDS ORDERED: Levalbuterol 0.63MG/3ML NEB* UNIT OF USE INH ONE ×2 (06:00→06:18)
[2018-07-08] MEDS ORDERED: Lactated Ringers 1000 ML Bag* 1,000 ML IV SCH (06:00)
[2018-07-08] MEDS ORDERED: Famotidine IV* 10 MG/ML 2 ML (20 mg) ONE (06:17)
[2018-07-08] MEDS ORDERED: Dexamethasone IV* 4 MG/ML 1 ML (4 MG) ONE (06:18)
[2018-07-08] MEDS ORDERED: Buffered Lidocaine 1% SYRIN* 1 ML/SYRINGE INTRADERM ONE (06:19)
[2018-07-08] MEDS ORDERED: ceFAZolin 2 GM PREMIX in ORs 2 GM/50 ML BAG IVPB ONE (06:19)
[2018-07-08] MEDS ORDERED: Bupivacaine 0.25% W/EPI* 10 ML SDV ONE (06:43)
[2018-07-08] MEDS ORDERED: fentaNYL* 50 MCG/ML 5 ML VIAL (250 MCG VIAL) ONE (07:17)
[2018-07-08] MEDS ORDERED: Midazolam* 1 MG/ML 2 ML VIAL (2 MG) ONE (07:17)
[2018-07-08] MEDS ORDERED: Rocuronium* 10 MG/ML VIAL ONE (07:17)
[2018-07-08] MEDS ORDERED: Lidocaine 2% PF * 5 ML VIAL ONE (07:20)
[2018-07-08] MEDS ORDERED: Glycopyrrolate IV* 0.2 MG/ML 1 ML VIAL ONE ×2 (08:23→08:32)
[2018-07-08] MEDS ORDERED: Propofol* 10 MG/ML 20 ML BTL ONE (08:23)
[2018-07-08] MEDS ORDERED: DiMENhydriNATE IV* 50 MG/ML VIAL IV PUSH PRN (08:29)
[2018-07-08] MEDS ORDERED: PROCHLORPERAZINE INJ 5 MG/ML 2 ML VIAL IV PRN (08:29)
[2018-07-08] MEDS ORDERED: Naloxone* 0.4 MG/ML 1 ML VIAL IV PRN (08:29)
[2018-07-08] MEDS ORDERED: oxyCODONE TAB* 5 MG TAB PO PRN (08:29)
[2018-07-08] MEDS ORDERED: Ibuprofen TAB* 600 MG PO PRN (08:29)
[2018-07-08] MEDS ORDERED: fentaNYL* 50 MCG/ML 2 ML VIAL (100 MCG VIAL) IV PRN (08:29)
[2018-07-08] MEDS ORDERED: Morphine VIAL* 4 MG/ML VIAL (1 ml vial) IV PRN (08:29)
[2018-07-08] MEDS ORDERED: Neostigmine Methylsulfate* 1 MG/ML 10 ML VIAL (1 mg/ml) ONE (08:32)
[2018-07-08] MEDS ORDERED: Ondansetron INJ* 2 MG/ML VIAL ONE (08:34)
--- NOTE | 2018-07-08 09:16 | OP ---
Operative Report - Blank - Operative Report Date of Operation: 07/08/18 Note: Preoperative DX: Symptomatic Cholelithiasis Postoperative DX: Symptomatic Cholelithiasis Procedure: Laparoscopic Cholecystectomy Anesthesia: GET Surgeon: Dr. Mcgrath Assist: Casey Contreras PA-C, Chan HANCOCK EBL: <5cc Specimen: Gallbladder Fluids: 1200 cc LR Drains: None Findings: See dictated
[2018-07-08] MEDS ORDERED: fentaNYL* 50 MCG/ML 2 ML VIAL (100 MCG VIAL) ONE (09:51)
[2018-07-08] MEDS ORDERED: oxyCODONE TAB* 5 MG TAB ONE ×2 (10:21→10:22)
[2018-07-08 10:52] VITALS: BP 117/68
--- NOTE | 2018-07-08 14:26 | OP ---
CC: [facility], Jose Camacho MD * DATE OF OPERATION: 07/08/18 - [facility] DATE OF : 58 SURGEON: Kishan Mcgrath MD PVC MONITOR: CURRY Weaver ANESTHESIOLOGIST: Dr. Stark. ANESTHESIA: General endotracheal. PRE-OP DIAGNOSIS: Symptomatic cholelithiasis. POST-OP DIAGNOSIS: Symptomatic cholelithiasis. OPERATIVE PROCEDURE: Laparoscopic cholecystectomy. ESTIMATED BLOOD LOSS: Minimal. IV FLUIDS: Crystalloid. SPECIMENS: Gallbladder. DRAINS: None. COMPLICATIONS: None. COUNTS: Instrument, needle, and sponge counts correct. DESCRIPTION OF PROCEDURE: The patient was brought into the operating room and placed on the table supine. Sequential compression devices were placed on both lower extremities and general anesthesia was administered. The abdomen was prepped and draped in usual sterile fashion and she received appropriate intravenous antibiotics. Local anesthetic was infiltrated into the skin and soft tissue prior to making each incision. Entry to the abdomen was through a transumbilical incision accommodating a 5 mm optical trocar. After accessing the peritoneal cavity, carbon dioxide was insufflated to a pressure of 15 mmHg. Under direct visualization, additional 5-mm trocars were placed, 2 in the right upper quadrant. A 12-mm trocars were placed in the subxiphoid position. Inspection revealed that there were adhesions of omentum in the area of the umbilicus and bellow this slightly to the left of midline was an adherent loop of small bowel. Inspection revealed these areas to be uninjured. The liver appeared to be fatty infiltrated. The gallbladder had chronic changes consistent with chronic cholecystitis with no acute inflammatory changes noted. The fundus of the gallbladder was retracted cephalad. Adherent fat to the fundus was taken down using a sharp dissection with cautery. Once this was freed, the infundibulum and gallbladder was identified and the peritoneum investing this was incised using sharp dissection and a combination of sharp and blunt cautery was used to dissect out the gallbladder along its medial and lateral aspects, identifying the cystic artery and cystic duct; and after obtaining critical view, both structures were doubly clicked and divided and the gallbladder was free from attachments to the liver using the cautery and staying in an avascular plane. One the gallbladder was freed, it was retrieved through the subxiphoid port site. Inspection revealed mucosa to be intact. Hemostasis was excellent. Ports removed under direct visualization, carbon dioxide was released. The incisions were closed with 4-0 Monocryl to approximate the skin. Steri-Strips were applied. The patient tolerated the procedure well, was extubated uneventfully, transferred to recovery in stable condition. [id number]/[facility] #: [id number] MTDD
== END 2018-07-08 10:54 | disposition home or self-care (01) ==
LOC: OR 05:46
PROVIDERS: ATTEND Surgery
DX: K80.10 Calculus of gallbladder with chronic cholecystitis without obstruction (principal); Z79.899 Other long term (current) drug therapy; I10 Essential (primary) hypertension; E78.5 Hyperlipidemia, unspecified; K21.9 Gastro-esophageal reflux disease without esophagitis; F32.9 Major depressive disorder, single episode, unspecified; E03.9 Hypothyroidism, unspecified
CPT/HCPCS: 88304; A9270-GY; J0690; J1100; J2250; J2405; J2704; J2710; J3010

== ENCOUNTER 2019-04-05 14:05 | Emergency (ER) | payer MEDICARE, MEDICAID ==
--- OUTSIDE RECORDS SUMMARY | 2019-04-05 14:10 | XMS REPORT | Continuity of Care Document ---
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 Provider Date Tobacco user Jose Camacho MD Onset: 01/17/2015 Social History Type Date Description Comments Sex Unknown Tobacco Use Start: Unknown Patient is a current smoker, smokes every day Smoking Status Reviewed: 02/16/19 Patient is a current smoker, smokes every day Allergies, Adverse Reactions, Alerts Active Allergies Reaction Severity Comments Date Tylenol 01/01/2008 Medications Active Medications SIG Qnty Indications Ordering Date Provider Potassium Chloride ER Take 1 Tablet 90tabs Jose Camacho, 10/07/2018 Every Day 10Meq Tablets ER Nifedipine ER Osmotic Take 1 Tablet 90tabs Jose Camacho, 09/29/2018 Release Every Day 60mg Tablets ER (Substituted For 24HR Nifedical XL) Doxepin HCL 1-2 at at bedtime 60caps F41.1 Jose Camacho, 11/25/2017 10mg for sleep Capsules Spiriva Respimat Inhale Two 4units J45.20 Jose Camacho, 04/11/2017 [place](S) By Mouth 2.5mcg/Act Aerosol Once Daily For Breathing Ibuprofen 1 three times a 90tabs M25.551 Jose Camacho, 03/14/2017 800mg Tablets day as needed with food Pravastatin Sodium Take 1 Tablet 90tabs E78.4 Jose Camacho, 11/20/2016 40mg Every Night AT MD Tablets Bedtime For Cholesterol Levothyroxine Sodium take 1 tablet 90tabs E03.9 Jose Camacho, 12/11/2012 every day 50mcg Tablets Indapamide Take 1 Tablet 90tabs Jose Camacho, 07/08/2012 2.5mg Every Day Tablets Atenolol 2 by mouth every 180tabs Jose Camacho, 12/15/2010 25mg Tablets day Ventolin HFA Inhale 2 Puffs By 18units Jose Camacho, 09/27/2009 Mouth Every 4 MD 108(90Base) mcg/Act Hours as Needed Aerosol Celexa 1qd - take one 90tabs 311 Jose Camacho, 01/01/2008 20mg Tablets tablet by mouth MD every day Omeprazole Take 1 Capsule Unknown 40mg Every Day For Capsules DR Stomach Aspirin 1 by mouth every Unknown 81mg Tablets DR day Immunizations Description No Information Available Vital Signs Date Vital Result Comment 02/16/2019 3:10pm Height 64 inches 5'4" Weight 212.00 lb BP Systolic 128 mmHg BP Diastolic 77 mmHg Heart Rate 65 /min BMI (Body Mass Index) 36.4 kg/m2 03/13/2018 10:27am Height 64 inches 5'4" Weight 220.00 lb BMI (Body Mass Index) 37.8 kg/m2 Results Test Date Facility Test Result H/L Range Note Liver Function Panel 02/16/2019 [facility] [place] Total Protein 7.5 g/dL Normal 6.4- 8.9 Albumin 4.6 g/dL Normal 3.2-5.2 Globulin 2.9 g/dL Normal 2-4 Albumin/Globulin Ratio 1.6 Normal 1-3 Total Bilirubin 0.30 mg/dL Normal 0.2-1.0 Direct Bilirubin 0.10 mg/dL Normal 0.03-0.18 Indirect Bilirubin 0.2 mg/dL Low 0.3-1.0 Alkaline Phosphatase 137 U/L High 34-104 Alt 24 U/L Normal 7-52 Ast 21 U/L Normal 13-39 Laboratory test finding 02/16/2019 [facility] [place] GGTP 60 U/L Normal 9-64.0 1 Mitochondrial AB AMA M2 Igg <pending> Xray 01/26/2019 [facility] [place] Radiology CT Abdomen W <pending> Lab Results 01/09/2019 N2N/CCD Import TSH <pending> 0.5-5 Free T4 <pending> 0.75-1.54 1 [id number] Procedures Description No Information Available Medical Devices Description No Information Available Encounters Description No Information Available Assessments Date Code Description Provider 02/16/2019 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
--- OUTSIDE RECORDS SUMMARY | 2019-04-05 14:10 | XMS REPORT | Continuity of Care Document ---
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 Problems Provider Date Tobacco user [...] Inhale Two 4units J45.20 Jose Camacho, 04/11/2017 [place](S) By Mouth 2.5mcg/Act Aerosol Once Daily For [...] H/L Range Note Liver Function Panel 02/16/2019 [facility] [place] Protein 7.5 g/dL Normal 6.4- 8.9 Albumin 4.6 g/dL Normal 3.2-5.2 Globulin 2.9 g/dL Normal 2-4 Albumin/Globulin Ratio 1.6 Normal 1-3 Total Bilirubin 0.30 mg/dL Normal 0.2-1.0 Direct Bilirubin 0.10 mg/dL Normal 0.03-0.18 Indirect Bilirubin 0.2 mg/dL Low 0.3-1.0 Alkaline Phosphatase 137 U/L High 34-104 Alt 24 U/L Normal 7-52 Ast 21 U/L Normal 13-39 Laboratory test finding 02/16/2019 [facility] [place] GGT[place] 60 U/L Normal 9-64.0 1 Mitochondrial AB AMA M2 Igg <0.1 U 2 Xray 01/26/2019 [facility] [place] Abdomen W <pending> Lab Results 01/09/2019 N2N/CCD Import TSH <pending> 0.5-5 Free T4 <pending> 0.75-1.54 1 [id number] 2 REFERENCE VALUE <0.1 (Negative) Test Performed by: [facility] [address] [place] [id number] Procedures Description No Information Available Medical Devices Description No Information Available Encounters Type Date Location Provider Dx Diagnosis Office Visit 02/16/2019 [facility] Ruthy D13.4 Benign neoplasm 3:[facility] Re[facility] MD of liver R94.5 Abnormal results of liver function studies Z86.010 Personal history of colonic polyps Assessments Date Code Description Provider 02/16/2019 D13.4 [...]
--- NOTE | 2019-04-05 14:11 | UC ---
Respiratory Complaint HPI - HPI Summary HPI Summary: 59 yo female presents with cough. She tells me that for the last 3-4 days she has had an intermittently productive cough with episodes of feeling short of breath. She has an albuterol inhaler and nebulizer at home that she has been using with good short term relief, but her symptoms will return. She has felt hot/cold, but has not taken her temperature. She has not been taking anything OTC. She is still smoking daily. Denies sore throat, chest pain, abdominal pain , n/v - History of Current Complaint Stated Complaint: COUGH Time Seen by Provider: 04/05/19 14:11 Hx Obtained From: Patient Hx Last Menstrual Period: post Onset/Duration: Gradual Onset Severity Initially: Mild Severity Currently: Moderate Pain Intensity: 5 Pain Scale Used: 0-10 Numeric - Allergies/Home Medications Allergies/Adverse Reactions: Allergies Allergy/AdvReac Type Severity Reaction Status Date / Time acetaminophen Allergy Palpitation Verified 04/05/19 14:15 s enviromental Allergy Eyes Uncoded 04/05/19 14:15 Itchy/Swollen/Red/Watery PMH/Surg Hx/FS Hx/Imm Hx - Additional Past Medical History Additional PMH: Chronic pain Endocrine History: Hypothyroidism, Dyslipidemia Cardiovascular History: Hypertension Respiratory History: COPD, Asthma GI/ History: Gastroesophageal Reflux Other History Of: Negative For: HIV, Hepatitis B, Hepatitis C, Anticoagulant Therapy - Surgical History Surgical History: Yes Surgery Procedure, Year, and Place: 08/[address] [facility] [place]- D&C,. 02/[address] [facility] [place]- hysterectomy. x2 , 1978, 1980. NERVE TRANSPLANT IN LEFT ARM,. TENDON RELEASE LEFT WRIST, 1990 - Family History Known Family History: Positive: Cardiac Disease - Brother - [place] at age 52, Hypertension, Diabetes - Social History Lives: With Family Alcohol Use: Rare Alcohol Amount: social Substance Use Type: None Smoking Status (MU): Heavy Every Day Tobacco Smoker Type: Cigarettes Amount Used/How Often: 10 cig a day for 36 yrs Length of Time of Smoking/Using Tobacco: 34 yrs Have You Smoked in the Last Year: Yes Household Exposure Type: Cigarettes - Immunization History Most Recent Influenza Vaccination: Never Most Recent Tetanus Shot: Within past 10 years Most Recent Pneumonia Vaccination: Never Review of Systems All Other Systems Reviewed And Are Negative: No Constitutional: Positive: Negative Skin: Positive: Negative ENT: Positive: Nasal Discharge, Sinus Congestion, Sinus Pain/Tenderness Respiratory: Positive: Cough Cardiovascular: Positive: Negative Gastrointestinal: Positive: Negative Neurological: Positive: Negative Psychological: Positive: Negative Physical Exam - Summary Physical Exam Summary: GENERAL: NAD. WDWN. No pain distress. SKIN: No rashes, sores, lesions, or open wounds. HEENT: Head: AT/NC Eyes: Conjunctiva clear without inflammation or discharge. Ears: Hearing grossly normal. TMs intact, no bulging, erythema, or edema. Nose: Nasal mucosa pink and moist. NTTP maxillary and frontal sinus. Throat: Posterior oropharynx without exudates, erythema, or tonsillar enlargement. Uvula midline. NECK: Supple. Nontender. No lymphadenopathy. CHEST: Moderate wheezing throughout. No r/r. No accessory muscle use. Breathing comfortably and in no distress. CV: RRR. Pulses intact. Cap refill <2seconds NEURO: Alert. PSYCH: Age appropriate behavior. Triage Information Reviewed: Yes Vital Signs: Vital Signs: Temp Pulse Resp BP Pulse Ox 97.8 F 62 24 154/87 99 04/05/19 14:11 04/05/19 14:11 04/05/19 14:11 04/05/19 14:11 04/05/19 14:11 Vital Signs Reviewed: Yes Diagnostics - Radiology CXR Radiology Interpretation Completed By: Radiologist Summary of Radiographic Findings: IMPRESSION: No active disease is noted. Respiratory Course/Dx - Course Course Of Treatment: CXR as above. In the clinic pt was given a duoneb treatment and dexamethasone with good relief and improved lung sounds. Given her great improvement, she was given another nebulizer treatment with albuterol only and had further improvement of her wheezing. She felt much better and was able to take a deep breath with no audible wheezing. Suspect bronchitis. Will rx for zpak and prednisone and have her continue her at home inhalers and albuterol nebulizer. Encouraged to cut back on smoking - Differential Dx/Diagnosis Provider Diagnosis: Bronchitis Discharge ED - Sign-Out/Discharge Documenting (check all that apply): Patient Departure All imaging exams completed and their final reports reviewed: Yes - Discharge Plan Condition: Stable Disposition: HOME Prescriptions: Azithromycin TAB* [Zithromax TAB (Z-PRASHANT) 250 mg #6 tabs] 2 tab PO .TODAY, THEN 1 DAILY #1 prashant predniSONE TAB* [Deltasone 20 MG TAB*] 40 mg PO DAILY #10 tab Patient Education Materials: Acute Cough (ED) Referrals: Jose Camacho MD [Primary Care Provider] - Additional Instructions: If you develop a fever, shortness of breath, chest pain, new or worsening symptoms - please call your PCP or go to the ED immediately. Your blood pressure was high at todays visit. Please see your primary provider within 4 weeks for recheck and re-evaluation. Please continue your at home inhaler and nebulizer. Start the PREDNISONE tomorrow as you were given a dose of this in the clinic today - Billing Disposition and Condition Condition: STABLE Disposition: Home
[2019-04-05 14:14] VITALS: BP 154/87
[2019-04-05] MEDS ORDERED: Albuterol/Ipratropium NEB.SOL* Albuterol 2.5 MG/Ipratropium 0.5 MG 3 ML INH ONE (14:22)
[2019-04-05] MEDS ORDERED: Dexamethasone TAB* 4 MG PO ONE (14:23)
[2019-04-05] MEDS ORDERED: Albuterol 2.5 MG/3 ML NEB.SOL* (0.083%) INH ONE (15:13)
== END 2019-04-05 15:36 | disposition home or self-care (01) ==
LOC: UCEAST 14:05
DX: J44.9 Chronic obstructive pulmonary disease, unspecified (principal); I10 Essential (primary) hypertension; F17.210 Nicotine dependence, cigarettes, uncomplicated; Z88.8 Allergy status to other drugs, medicaments and biological substances; Z91.09 Other allergy status, other than to drugs and biological substances
CPT/HCPCS: 71046; 99213; A9270-GY; G0463; J8540